=== PATIENT | male | born 1955 | race Caucasian/White ===

== ENCOUNTER 2018-07-25 09:53 | Inpatient (IN) | payer BC ==
[2018-07-25] MEDS ORDERED: DIPH,PERTUS(ACELL)TETVAC-LF 0.5 ML VIAL IM ONE (10:14)
[2018-07-25] MEDS ORDERED: SODIUM CHLORIDE 0.9% 1,000 ML IV STA (10:14)
--- NOTE | 2018-07-25 10:19 | ED ---
General Adult HPI - General Chief complaint: Syncope Stated complaint: Syncope Time Seen by Provider: 07/25/18 10:05 Source: patient, family, RN notes reviewed Mode of arrival: wheelchair Limitations: no limitations - History of Present Illness Initial comments: Patient is a pleasant 63-year-old male presenting to the emergency department with chest discomfort. Patient did have a syncopal episode yesterday while cutting the grass. Patient states he just fell down in the next thing he knows she was lifting himself up off the ground. Patient has had some discomfort in his chest since that time. Discomfort feels like an ache. Discomfort is positional and worse with deep breaths. No dyspnea. No leg pain or leg swelling. No headache or confusion. Patient did strike his face and has some abrasions there. No neck pain. - Related Data Home Medications Medication Instructions Recorded Confirmed Aspirin EC [Ecotrin Low Dose] 81 mg PO DAILY 07/25/18 07/25/18 Atorvastatin [Lipitor] 10 mg PO HS 07/25/18 07/25/18 Cyanocobalamin (Vitamin B-12) 1,000 mcg PO DAILY 07/25/18 07/25/18 [Vitamin B-12] Ergocalciferol (Vitamin D2) 50,000 unit PO FR 07/25/18 07/25/18 [Vitamin D2] Lisinopril [Zestril] 10 mg PO DAILY 07/25/18 07/25/18 Multivit-Min/FA/Lycopen/Lutein 1 tab PO DAILY 07/25/18 07/25/18 [Centrum Silver Tablet] [place]-3 Fatty Acids/Fish Oil [Fish 1 cap PO DAILY 07/25/18 07/25/18 Oil 1,000 mg Softgel] Allergies Allergy/AdvReac Type Severity Reaction Status Date / Time No Known Allergies Allergy Verified 07/25/18 10:29 Review of Systems ROS Statement: Those systems with pertinent positive or pertinent negative responses have been documented in the HPI. ROS Other: All systems not noted in ROS Statement are negative. Constitutional: Denies: fever Eyes: Denies: eye pain ENT: Denies: ear pain Respiratory: Denies: dyspnea Cardiovascular: Reports: as per HPI, chest pain Endocrine: Denies: fatigue Gastrointestinal: Denies: abdominal pain Genitourinary: Denies: dysuria Musculoskeletal: Denies: back pain Skin: Denies: pruritus Neurological: Denies: weakness, confusion Psychiatric: Reports: anxiety Past Medical History Past Medical History: Hyperlipidemia, Hypertension History of Any Multi-Drug Resistant Organisms: None Reported Past Surgical History: Appendectomy, Hernia Repair, Tonsillectomy Additional Past Surgical History / Comment(s): 5 hernia repair Past Psychological History: No Psychological Hx Reported Smoking Status: Current every day smoker Past Alcohol Use History: Daily Past Drug Use History: None Reported General Exam Limitations: no limitations General appearance: alert, in no apparent distress Head exam: Present: other (Facial abrasions. No tenderness over the nasal bridge.) Eye exam: Present: normal appearance, PERRL, EOMI. Absent: nystagmus ENT exam: Present: normal oropharynx Neck exam: Present: normal inspection. Absent: tenderness Respiratory exam: Present: normal lung sounds bilaterally. Absent: chest wall tenderness Cardiovascular Exam: Present: normal rhythm, tachycardia Expanded Peripheral pulses: 2+: Radial (R), Radial (L), Posterior Tibialis (R), Posterior Tibialis (L) GI/Abdominal exam: Present: soft. Absent: distended, tenderness, guarding, rebound Extremities exam: Present: normal inspection. Absent: pedal edema, calf tenderness Neurological exam: Present: alert, oriented X3, CN II-XII intact. Absent: motor sensory deficit Expanded Neurological exam: Present: protecting the airway Speech: Present: fluid speech Cranial nerves: EOM's Intact: Normal, Facial Sensation: Normal Sensory exam: Upper Extremity Light Touch: Normal, Lower Extremity Light Touch: Normal Motor strength exam: RUE: 5, LUE: 5, RLE: 5, LLE: 5 Eye Response: (4) open spontaneously Motor Response: (6) obeys commands Verbal Response: (5) oriented Psychiatric exam: Present: normal affect, normal mood Skin exam: Present: normal color Course Vital Signs 07/25/18 07/25/18 09:57 12:24 Temperature 98.7 F Pulse Rate 128 H 106 H Respiratory 24 18 Rate Blood Pressure 127/69 122/58 O2 Sat by Pulse 98 99 Oximetry - Reevaluation(s) Reevaluation #1: 07/25/18 13:35 There is suspicion for pneumonia. Patient does meet criteria for sepsis at 1335. Blood culture and lactic acid have been ordered. IV antibiotics will be ordered. EKG Findings - EKG Comments: EKG Findings:: Sinus tachycardia 119. DC 156. QRS 76. QT 308. QTC 433. Left axis. Septal Q waves. Repolarization changes in V2. Medical Decision Making - Medical Decision Making Patient reevaluated and updated. Patient and family are unaware of any history of previous lung problems. Case discussed in detail with Dr. Ghosh, who will admit for hospital call. - Lab Data Result diagrams: 07/25/18 10:20 07/25/18 10:20 Lab Results 07/25/18 07/25/18 07/25/18 Range/Units 10:20 10:20 10:20 WBC 15.2 H (3.8-10.6) k/uL RBC 4.34 (4.30-5.90) m/uL Hgb 13.1 (13.0-17.5) gm/dL Hct 41.2 (39.0-53.0) % MCV 94.8 (80.0-100.0) fL MCH 30.1 (25.0-35.0) pg MCHC 31.8 (31.0-37.0) g/dL RDW 12.1 (11.5-15.5) % Plt Count 560 H (150-450) k/uL Neutrophils % 86 % Lymphocytes % 8 % Monocytes % 5 % Eosinophils % 1 % Basophils % 0 % Neutrophils # 13.0 H (1.3-7.7) k/uL Lymphocytes # 1.2 (1.0-4.8) k/uL Monocytes # 0.7 (0-1.0) k/uL Eosinophils # 0.2 (0-0.7) k/uL Basophils # 0.0 (0-0.2) k/uL PT (9.0-12.0) sec INR (<1.2) APTT (22.0-30.0) sec D-Dimer (<0.60) mg/L FEU Sodium 133 L (137-145) mmol/L Potassium 4.0 (3.5-5.1) mmol/L Chloride 94 L (98-107) mmol/L Carbon Dioxide 26 (22-30) mmol/L Anion Gap 13 mmol/L BUN 13 (9-20) mg/dL Creatinine 0.79 (0.66-1.25) mg/dL Est GFR (CKD-EPI)AfAm >90 (>60 ml/min/1.73 sqM) Est GFR (CKD-EPI)NonAf >90 (>60 ml/min/1.73 sqM) Glucose 103 H (74-99) mg/dL Calcium 9.0 (8.4-10.2) mg/dL Magnesium 2.0 (1.6-2.3) mg/dL Total Bilirubin 0.7 (0.2-1.3) mg/dL AST 122 H (17-59) U/L ALT 101 H (21-72) U/L Alkaline Phosphatase 109 (38-126) U/L Total Creatine Kinase 20 L (55-170) U/L CK-MB (CK-2) 0.6 (0.0-2.4) ng/mL CK-MB (CK-2) Rel Index 3.0 Troponin I <0.012 (0.000-0.034) ng/mL Total Protein 5.8 L (6.3-8.2) g/dL Albumin 3.0 L (3.5-5.0) g/dL Urine Color Urine Appearance (Clear) Urine pH (5.0-8.0) Ur Specific [place] (1.001-1.035) Urine Protein (Negative) Urine Glucose (UA) (Negative) Urine Ketones (Negative) Urine Blood (Negative) Urine Nitrite (Negative) Urine Bilirubin (Negative) Urine Urobilinogen (<2.0) mg/dL Ur Leukocyte Esterase (Negative) 07/25/18 07/25/18 Range/Units 10:20 12:16 WBC (3.8-10.6) k/uL RBC (4.30-5.90) m/uL Hgb (13.0-17.5) gm/dL Hct (39.0-53.0) % MCV (80.0-100.0) fL MCH (25.0-35.0) pg MCHC (31.0-37.0) g/dL RDW (11.5-15.5) % Plt Count (150-450) k/uL Neutrophils % % Lymphocytes % % Monocytes % % Eosinophils % % Basophils % % Neutrophils # (1.3-7.7) k/uL Lymphocytes # (1.0-4.8) k/uL Monocytes # (0-1.0) k/uL Eosinophils # (0-0.7) k/uL Basophils # (0-0.2) k/uL PT 10.3 (9.0-12.0) sec INR 1.1 (<1.2) APTT 24.9 (22.0-30.0) sec D-Dimer 3.26 H (<0.60) mg/L FEU Sodium (137-145) mmol/L Potassium (3.5-5.1) mmol/L Chloride (98-107) mmol/L Carbon Dioxide (22-30) mmol/L Anion Gap mmol/L BUN (9-20) mg/dL Creatinine (0.66-1.25) mg/dL Est GFR (CKD-EPI)AfAm (>60 ml/min/1.73 sqM) Est GFR (CKD-EPI)NonAf (>60 ml/min/1.73 sqM) Glucose (74-99) mg/dL Calcium (8.4-10.2) mg/dL Magnesium (1.6-2.3) mg/dL Total Bilirubin (0.2-1.3) mg/dL AST (17-59) U/L ALT (21-72) U/L Alkaline Phosphatase (38-126) U/L Total Creatine Kinase (55-170) U/L CK-MB (CK-2) (0.0-2.4) ng/mL CK-MB (CK-2) Rel Index Troponin I (0.000-0.034) ng/mL Total Protein (6.3-8.2) g/dL Albumin (3.5-5.0) g/dL Urine Color Yellow Urine Appearance Clear (Clear) Urine pH 6.0 (5.0-8.0) Ur Specific [place] 1.035 (1.001-1.035) Urine Protein Trace H (Negative) Urine Glucose (UA) Negative (Negative) Urine Ketones 2+ H (Negative) Urine Blood Negative (Negative) Urine Nitrite Negative (Negative) Urine Bilirubin Negative (Negative) Urine Urobilinogen 3.0 (<2.0) mg/dL Ur Leukocyte Esterase Negative (Negative) - Radiology Data Radiology results: report reviewed (Computed tomography scan of the brain and cervical spine shows no acute hemorrhage or shift. Mild atrophy. Empty sella. Possible mastoiditis.), image reviewed (Two-view right chest x-ray shows bullous formation with air-fluid levels right upper lung with surrounding opacity. CT angios chest shows emphysematous changes with possible chronic findings. Acute process difficult to exclude. Fluid within the bullae and adjacent area of consolidation is present.) Disposition Clinical Impression: Syncope, Pneumonia, Sepsis Disposition: ADMITTED IP TO THIS HOSP Is patient prescribed a controlled substance at d/c from ED?: No Referrals: None,Stated [Primary Care Provider] - 1-2 days Decision Time: 13:36
[2018-07-25 10:39] LABS: Basophils % (A) 0 %; Eosinophils # (A) 0.2 k/uL (0-0.7); Eosinophils % (A) 1 %; HCT 41.2 % (39.0-53.0); HGB 13.1 gm/dL (13.0-17.5); Lymphocytes # (A) 1.2 k/uL (1.0-4.8); Lymphocytes % (A) 8 %; MCH 30.1 pg (25.0-35.0); MCHC 31.8 g/dL (31.0-37.0); MCV 94.8 fL (80.0-100.0); Mean Platelet Volume 6.5; Monocytes # (A) 0.7 k/uL (0-1.0); Monocytes % (A) 5 %; Neutrophils % (A) 86 %; Platelet Count 560 k/uL (150-450); RBC 4.34 m/uL (4.30-5.90); RDW 12.1 % (11.5-15.5); WBC 15.2 k/uL (3.8-10.6)
[2018-07-25 10:52] LABS: ALT 101 U/L (21-72); AST 122 U/L (17-59); Alkaline Phosphatase 109 U/L (38-126); Anion Gap 13 mmol/L; Blood Urea Nitrogen 13 mg/dL (9-20); Carbon Dioxide 26 mmol/L (22-30); Chloride 94 mmol/L (98-107); Glucose 103 mg/dL (74-99); Sodium 133 mmol/L (137-145); Total Bilirubin 0.7 mg/dL (0.2-1.3); Total Protein 5.8 g/dL (6.3-8.2)
[2018-07-25 11:01] LABS: Creatine Kinase 20 U/L (55-170)
[2018-07-25 11:03] LABS: INR 1.1 (<1.2); Partial Thromboplastin Time 24.9 sec (22.0-30.0); Prothrombin Time 10.3 sec (9.0-12.0)
--- NOTE | 2018-07-25 11:04 | CT ---
EXAMINATION TYPE: CT brain wo con DATE OF EXAM: 07/25/2018 HISTORY: Syncope, with fall to left side. Loss of consciousness. CT DLP: 978.20 mGycm. Automated Exposure Control for Dose Reduction was Utilized. TECHNIQUE: CT scan of the head is performed without contrast. COMPARISON: None. FINDINGS: There is no acute intracranial hemorrhage or midline shift identified. There is diffuse v entricular and sulcal prominence consistent with diffuse age-related cerebral atrophy. Wells-white mat ter differentiation is fairly well-maintained. The globes are intact and the visualized sinuses are clear. Patchy opacification right mastoid air cells is present posteriorly. Somewhat empty sella in cidentally noted on sagittal image 28. Moderate calcified plaque supraclinoid segment distal internal carotid arteries is present. IMPRESSION: No acute intracranial hemorrhage or midline shift. There is mild to moderate diffuse ag e-related cerebral atrophy. Empty sella is present. Possible mild right-sided mastoiditis, correlate clinically with point tenderness at this level.
--- NOTE | 2018-07-25 11:07 | XR ---
EXAMINATION TYPE: XR chest 2V DATE OF EXAM: 07/25/2018 COMPARISON: NONE HISTORY: Left-sided chest pain after fall injury. History of COPD. TECHNIQUE: Frontal and lateral views of the chest are obtained. FINDINGS: There is bullous formation in right upper lung with air-fluid levels suspected. There is s urrounding right lung opacity particularly inferiorly favoring scarring. Trachea appears narrowed and deviated to the left of midline. Left lung is clear. Left lung base is not entirely included on fron steve view making evaluation slightly suboptimal. The cardiac silhouette size is within normal limits. The osseous structures are intact. IMPRESSION: Right-sided findings as detailed above favor chronic etiology. Correlation with old outs ro chest x-ray or CT thorax would be beneficial to confirm.
[2018-07-25 11:15] LABS: Creatine Kinase MB 0.6 ng/mL (0.0-2.4); Troponin I <0.012 ng/mL (0.000-0.034)
[2018-07-25 11:17] LABS: D-Dimer 3.26 mg/L FEU (<0.60)
[2018-07-25 12:27] LABS: Appearance,Urine Clear (Clear); Bilirubin,Urine Negative (Negative); Blood,Urine Negative (Negative); Color,Urine Yellow; Glucose,Urine (UA) Negative (Negative); Ketones,Urine 2+ (Negative); Leukocyte Esterase,Urine Negative (Negative); Nitrite,Urine Negative (Negative); Protein,Urine Trace (Negative); Specific Gravity,Urine 1.035 (1.001-1.035)
--- NOTE | 2018-07-25 12:40 | CT ---
EXAMINATION TYPE: CT angio chest DATE OF EXAM: 07/25/2018 COMPARISON: Same day chest x-ray HISTORY: Elevated d dimer history of COPD with left-sided chest pain after fall injury. CT DLP: 401 mGycm. Automated Exposure Control for Dose Reduction was Utilized. CONTRAST: CTA scan of the thorax is performed with IV Contrast, patient injected with 68 mL of Isovue 370, pulm onary embolism protocol. MIP Images are created on CT scanner and reviewed. FINDINGS: LUNGS: Underlying emphysematous change is seen bilaterally. There are large bulla with thickened wall s occupying majority of the right upper lung lateral aspect. There are areas of adjacent honeycombing noted. Some areas of acute infiltrate are difficult to entirely exclude without prior comparison. So me fluid within bullae is confirmed as suspected on chest x-ray . Bleb formation at bilateral hilar r egion is noted. There is relative sparing of right middle and lower lobes of acute infiltrate or edging catcher makayla fibrosis. No pleural effusion or pneumothorax is evident bilaterally. AP diameter narrowing of th e trachea is present with some retained tracheal secretions noted. MEDIASTINUM: There is satisfactory enhancement of the pulmonary artery and its branches, there is no CT evidence for pulmonary embolism. There are no greater than 1 cm hilar or mediastinal lymph nodes. No cardiomegaly or pericardial effusion is seen. OTHER: No additional significant abnormality is seen. IMPRESSION: 1. No CT evidence for acute pulmonary embolism. 2. Background mild underlying emphysematous change with suspected chronic findings right upper lobe. Acute process on background of chronic disease is difficult to entirely exclude without prior compari son especially given presence of fluid within bulla and adjacent areas of consolidation and/or ground glass opacity. Strict clinical correlation is advised if there is no outside CT or chest x-ray compar natasha.
[2018-07-25] MEDS ORDERED: NICOTINE 21MG/24HR PATCH TRANSDERM STA (13:35)
[2018-07-25] MEDS ORDERED: NALOXONE 0.4 MG/ML 1 ML VIAL IV PRN (13:36)
[2018-07-25] MEDS ORDERED: IPRATROPIUM-ALBUTEROL 3 ML NEB INHALATION PRN (13:36)
[2018-07-25] MEDS ORDERED: PNEUMONIA PROTOCOL UTILIZED 1 EACH MISC PO PRN (13:36)
[2018-07-25] MEDS: AZITHROMYCIN 500 MG in SODIUM CHLORIDE 0.9% 250 ML IVPB STA ×2 (15:25→16:06)
[2018-07-25] MEDS: cefTRIAXone IN SWFI 1,000 MG/10 ML SYRINGE IVP STA ×2 (15:25→16:06)
[2018-07-25] MEDS: SODIUM CHLORIDE 0.9% 1,000 ML IV SCH (16:07)
[2018-07-25 16:37] LABS: Creatine Kinase 30 U/L (55-170)
--- NOTE | 2018-07-25 16:43 | P.CNPUL ---
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 The patient apparently was cutting the lawn and as he was doing that he was getting short of breath. He gave himself some rest and the same thing was drinking in beer. Subsequently he came back to do the job and he had a acute syncope with he passed out and he sustained some laceration to his face anteriorly. Within minutes, the patient was wide awake and the was about to call EMS and after the patient woke up the patient refused to come into the hospital. This morning, the patient came into the hospital for the event that occurred yesterday. No reported chest pain. No palpitations. No seizure activity noted. No focal neurological deficits. No change in his speech. CAT scan of the brain was done and showed chronic atrophy without any acute abnormalities seen. Chest x-ray was markedly abnormal and based on that a CAT scan of the chest was done that showed paraseptal emphysema addition to extensive consolidation of the right apical lobe in addition to areas of cavitation/fluid filled emphysematous pockets/ bullae and this was mainly affecting the upper lobe sparing the right middle lobe and the right lower lobe. Small right-sided pleural effusion was seen. No evidence of any significant medicinal lymphadenopathy. Unfortunately no previous x-rays aren't available for comparison. The patient denies having any close medical attention and he does not see doctors on a regular basis. He does admit however to become progressively more short of breath. His got a congested cough and his INR producing thick purulent sputum. Denies having any previous aspiration although he has had some difficulties with swallowing solid material. No history of TB exposure. No fever chills any admits to have lost some weight in the order of 10-15 pounds. No trauma to the chest. No exposure to animals or birds products. No travel history. His white cell count is mildly elevated at 15.0. Liver function is slightly abnormal. Troponins are negative. Aggressive electrodes are all within normal limits. EKG showed sinus tachycardia with bilateral a chair enlargement and left axis deviation and Q waves over the anterior leads suggestive of an old anterior wall myocardial infarction. Based on all this pulmonary consultation was requested. Review of Systems Constitutional: Reports fatigue, Reports lethargy, Reports weakness, Reports weight loss Eyes: denies blurred vision, denies bulging eye, denies decreased vision Ears: deny: decreased hearing, ear discharge, earache, tinnitus Ears, nose, mouth and throat: Reports as per HPI Cardiovascular: Reports decreased exercise tolerance, Reports dyspnea on exertion, Reports shortness of breath, Reports syncope Respiratory: Reports cough with sputum, Reports dyspnea Gastrointestinal: Denies abdominal pain, Denies diarrhea, Denies nausea, Denies vomiting Genitourinary: Reports as per HPI Musculoskeletal: Reports as per HPI, Denies myalgias Musculoskeletal: absent: ankle pain, ankle stiffness, ankle swelling Integumentary: Reports wounds (Superficial laceration of the skin over the forehead and the nose related to a fall post syncope) Neurological: Reports syncope, Reports weakness Psychiatric: Denies anxiety, Denies depression Endocrine: Reports as per HPI Hematologic/Lymphatic: Reports as per HPI Allergic/Immunologic: Reports as per HPI Past Medical History Past Medical History: COPD, Hyperlipidemia, Hypertension, Osteoarthritis (OA) Additional Past Medical History / Comment(s): Arthritis bilateral hands, elbows , shoulders and L foot. History of Any Multi-Drug Resistant Organisms: None Reported Past Surgical History: Appendectomy, Hernia Repair, Tonsillectomy Additional Past Surgical History / Comment(s): 5 hernia repairs involving bilateral groins Past Anesthesia/Blood Transfusion Reactions: No Reported Reaction Additional Past Anesthesia/Blood Transfusion Reaction / Comment(s): Pt has never received blood. Smoking Status: Current every day smoker - Past Family History Father Family Medical History: Musculoskeletal Disorder, Neurologic Disorder Additional Family Medical History / Comment(s): Father is . He had MS. Mother Family Medical History: Myocardial Infarction (MA) Additional Family Medical History / Comment(s): Mother of a MA at the age of 78yrs. Medications and Allergies Home Medications Medication Instructions Recorded Confirmed Type Aspirin EC [Ecotrin Low Dose] 81 mg PO DAILY 07/25/18 07/25/18 History Atorvastatin [Lipitor] 10 mg PO HS 07/25/18 07/25/18 History Cyanocobalamin (Vitamin B-12) 1,000 mcg PO DAILY 07/25/18 07/25/18 History [Vitamin B-12] Ergocalciferol (Vitamin D2) 50,000 unit PO FR 07/25/18 07/25/18 History [Vitamin D2] Lisinopril [Zestril] 10 mg PO DAILY 07/25/18 07/25/18 History Multivit-Min/FA/Lycopen/Lutein 1 tab PO DAILY 07/25/18 07/25/18 History [Centrum Silver Tablet] [place]-3 Fatty Acids/Fish Oil [Fish 1 cap PO DAILY 07/25/18 07/25/18 History Oil 1,000 mg Softgel] Allergies Allergy/AdvReac Type Severity Reaction Status Date / Time No Known Allergies Allergy Verified 07/25/18 10:29 Physical Exam Vitals: Vital Signs Temp Pulse Resp BP Pulse Ox 07/25/18 13:58 98.9 F 101 H 18 123/62 99 07/25/18 12:24 106 H 18 122/58 99 07/25/18 09:57 98.7 F 128 H 24 127/69 98 Intake and Output 07/25/18 07/25/18 07/25/18 06:59 14:59 22:59 Other: Weight 63.503 kg Gen. appearance, comfortable likely distress. The patient has some superficial examination of the skin over the forehead and nose, no active bleeding Head exam was generally normal. There was no scleral icterus or corneal arcus. Mucous membranes were moist. Neck was supple and without jugular venous distension, thyromegaly, or carotid bruits. Carotids were easily palpable bilaterally. There was no adenopathy. Lungs sounds are diminished bilaterally along with some scattered expiratory wheezes. Few rales over the right upper lobe area anteriorly. Cardiac exam revealed the PMI to be normally situated and sized. The rhythm was regular and no extrasystoles were noted during several minutes of auscultation. The first and second heart sounds were normal and physiologic splitting of the second heart sound was noted. There were no murmurs, rubs, clicks, or gallops. Abdominal exam revealed normal bowel sounds. The abdomen was soft, non-tender, and without masses, organomegaly, or appreciable enlargement of the abdominal aorta. Examination of the skin revealed no evidence of significant rashes, suspicious appearing nevi or other concerning lesions. Examination of the extremities revealed easily palpable radial, femoral and pedal pulses. There was no cyanosis, clubbing or edema. Neurologically awake and alert and there is no focal neurological deficits. Results - Laboratory Findings CBC and BMP: 07/25/18 10:20 07/25/18 10:20 PT/INR, D-dimer PT 10.3 sec (9.0-12.0) 07/25/18 10:20 INR 1.1 (<1.2) 07/25/18 10:20 D-Dimer 3.26 mg/L FEU (<0.60) H 07/25/18 10:20 Abnormal lab findings: Abnormal Labs 07/25/18 07/25/18 07/25/18 10:20 10:20 10:20 WBC 15.2 H Plt Count 560 H Neutrophils # 13.0 H D-Dimer Sodium 133 L Chloride 94 L Glucose 103 H AST 122 H ALT 101 H Total Creatine Kinase 20 L Total Protein 5.8 L Albumin 3.0 L Urine Protein Urine Ketones 07/25/18 07/25/18 10:20 12:16 WBC Plt Count Neutrophils # D-Dimer 3.26 H Sodium Chloride Glucose AST ALT Total Creatine Kinase Total Protein Albumin Urine Protein Trace H Urine Ketones 2+ H - Diagnostic Findings Chest x-ray: image reviewed CT scan - chest: image reviewed Assessment and Plan Plan: Assessment 1 extensive right upper lobe consolidation along with areas of either cavitation or fluid filled bullae/emphysematous blebs. This is most probably a manifestation of a pneumonia which is looking more subacute or chronic rather than being acute. The patient has been having some increased shortness of breath over the past several weeks. He drinks alcohol excessively is a smoker. As such I'm considering anaerobic infections/aspiration or gram-negative infections related to alcoholism. Tuberculosis felt to be less likely knowing that the patient's CAT scan does not reveal a typical features of TB and there is no evidence of any granulomatous changes changes or mediastinal node involvement, and furthermore the patient denies having any exposure to TB. Atypical mycobacterial infection, fungal infections are likely. 2 shortness of breath secondary to above 3 COPD with upper lobe predominance and areas of paraseptal emphysema 4 syncope on that investigation, in my judgment, the syncope is unlikely related to the lung findings and other causes need to be ruled out including possibility of alcoholic passed out or any other cardiogenic causes 5 smoker 6 alcoholism, suspected 7 anterior Q-wave leads, abnormal EKG, suspect previous MA involving the anterior wall/septal wall 8 hypertension 9 hyperlipidemia Plan Put the patient is Zosyn and Levaquin combination. Had a lengthy discussion with the patient. Very important for this patient underwent bronchoscopy for airway inspection same time obtain samples from the right upper lobe and sent for microbial analysis and fungal analysis. Put the patient on DuoNeb the restrooms [id number]. Keep him nothing by mouth after midnight for possible bronchoscopy in a.m.. Meanwhile the patient will be placed on telemetry monitoring. We'll obtain echocardiogram. Would like to obtain a cardiac clearance prior to proceeding with bronchoscopy in a.m. Explained the findings to the patient. Reviewed the films with the family. We'll watch for any signs of delirium tremens. We'll continue to follow. Cardiology consultation.
[2018-07-25] MEDS: LEVOFLOXACIN 750 MG TAB PO SCH (16:49)
[2018-07-25] MEDS: PIPERACILLIN-TAZOBACTAM 3.375 GM in DEXTROSE/WATER 1 50ML.BAG IVPB SCH (16:49)
[2018-07-25 16:50] LABS: Creatine Kinase MB 0.5 ng/mL (0.0-2.4); Troponin I <0.012 ng/mL (0.000-0.034)
[2018-07-25] MEDS ORDERED: LORazepam 2 MG/ML INJ IV PRN ×3 (17:37)
[2018-07-25] MEDS ORDERED: THIAMINE 100 MG/ML 2 ML VIAL IM STA (17:37)
[2018-07-25] MEDS ORDERED: ONDANSETRON 4 MG/2 ML VIAL IVP PRN (17:38)
[2018-07-25] MEDS ORDERED: traMADol 50 MG TAB PO PRN (17:40)
[2018-07-25] MEDS: LISINOPRIL 10 MG TAB PO SCH (18:39)
[2018-07-25] MEDS: PANTOPRAZOLE 40 MG/10 ML VIAL IVP SCH (18:39)
[2018-07-25] MEDS: THIAMINE 100 MG TAB PO SCH (18:39)
[2018-07-25] MEDS: MELATONIN 3 MG TABLET PO SCH (20:03)
[2018-07-25] MEDS: ATORVASTATIN 10 MG TAB PO SCH (20:03)
[2018-07-25] MEDS: IPRATROPIUM-ALBUTEROL 3 ML NEB INHALATION SCH (20:26)
[2018-07-25] MEDS ORDERED: HYDROcodone/APAP 5-325MG 1 EACH TAB PO PRN (22:18)
[2018-07-25] MEDS ORDERED: ALPRAZolam 0.25 MG TAB PO PRN (22:18)
[2018-07-25] MEDS ORDERED: TEMAZEPAM 15 MG CAP PO PRN (22:18)
--- NOTE | 2018-07-25 23:23 | HP ---
HISTORY AND PHYSICAL CHIEF COMPLAINT: Syncope as well as cough and chest pain. HISTORY OF PRESENT ILLNESS: This 63-year-old gentleman with a past medical history of multiple medical problems, including COPD, hypertension, hypertension, DJD, history of appendectomy, hernia surgery, is not being followed by any primary physician at this time. The patient apparently passed out while walking in the backyard after mowing the lawn and today the patient apparently had nausea and complaining of chest pain and the patient was taken to [facility] and admitted for further evaluation and treatment. The patient was found to have extensive right upper lobe consolidation with possibly cavitation and emphysematous pleural effusion on the right side and the patient was admitted for further evaluation and treatment. There is no history of any previous respiratory illness. No history of any travel elsewhere. No history of headache, seizures at this time. The patient was admitted. Broad-spectrum IV antibiotics were given. The patient was also given bronchodilators. Bronchoscopy is being planned by Dr. Fournier tomorrow. PAST MEDICAL HISTORY: COPD, hypertension, history of DJD, history of appendectomy, history of hernia repair. MEDICATIONS PRIOR TO ADMISSION: Include: 1. [place]-3 fatty acids 1 p.o. daily. 2. Multivitamins 1 p.o. daily. 3. Zestril 10 mg. 4. Vitamin D2, 50,000 p.o. Saturday. 5. Vitamin D 2000 mcg p.o. daily. 6. Lipitor 10 mg q.h.s. 7. Ecotrin 81 mg p.o. daily. ALLERGIES: None. FAMILY HISTORY: History of neurological disorder, history of multiple sclerosis. SOCIAL HISTORY: History of smoking on a daily basis. History of alcohol. REVIEW OF SYSTEMS: ENT: No diminished hearing, diminished vision. CARDIOVASCULAR: No angina, palpitations. RESPIRATORY: As mentioned earlier. GI: No nausea or vomiting. : No dysuria. NERVOUS: No numbness or weakness. ALLERGY/IMMUNOLOGY: No asthma or hay fever. MUSCULOSKELETAL: As mentioned earlier. HEMATOLOGY/ONCOLOGY: No history of anemia. ENDOCRINE: No history of diabetes, hypothyroidism. CONSTITUTIONAL: As mentioned earlier. DERMATOLOGY: Negative. RHEUMATOLOGY: Negative. PSYCHIATRY: As mentioned earlier. PHYSICAL EXAMINATION: Alert, oriented x3. Pulse 103, blood pressure 130/70, respirations 20, temperature 98.4, pulse ox 94% on room air. HEENT: Conjunctivae normal. Oral mucosa moist. NECK: No jugular venous distention. No carotid bruits. No lymph node enlargement. CARDIOVASCULAR: S1, S2 muffled. RESPIRATORY: Breath sounds diminished in the bases. Bilateral scattered rhonchi and crackles. ABDOMEN: Soft, nontender. No mass palpable. LEGS: No edema. No swelling. NERVOUS SYSTEM: Higher functions as mentioned earlier. Moves all 4 limbs. No focal motor or sensory deficits. LYMPHATIC: No lymphadenopathy in neck or axillae. SKIN: No ulcer, rash or bleeding. LABS: WBC 15.2 and platelets 560 and D-dimer is 3.26. ASSESSMENT: 1. Chronic obstructive pulmonary disease acute exacerbation with right upper lobe pneumonia, possibly gram-negative. 2. Right upper lobe cavitary lesion for evaluation. 3. Increased WBC. 4. Hyponatremia. 5. Continued ongoing nicotine dependence. 6. Increased AST ALT. 7. Hypertension. 8. Hyperlipidemia. 9. Degenerative joint disease. 10.History of chronic obstructive pulmonary disease. 11.History of degenerative joint disease. RECOMMENDATIONS AND DISCUSSION: In this 63-year-old gentleman who presented with multiple complex medical issues, we will monitor the patient closely, continue the current medications. Continue with the bronchodilators, continue with empiric antibiotics. Follow closely with Dr. Fournier. Otherwise, I would also recommend continue with the bronchoscopy. Resume the home medications. I would also recommend it p.r.n. Ativan. Otherwise, repeat labs will be ordered. Home medications will be continued. The prognosis is guarded because of multiple complex medical issues. Further recommendations to follow. I also recommend the patient follow up with a primary physician in the outpatient setting. MMODL / IJN: [id number] /
[2018-07-25 23:26] LABS: Creatine Kinase 21 U/L (55-170)
[2018-07-25 23:40] LABS: Creatine Kinase MB 0.5 ng/mL (0.0-2.4); Troponin I <0.012 ng/mL (0.000-0.034)
[2018-07-26] MEDS: ACETAMINOPHEN TAB 500 MG TAB PO PRN ×2 (01:09→20:43)
[2018-07-26] MEDS: PIPERACILLIN-TAZOBACTAM 3.375 GM in DEXTROSE/WATER 1 50ML.BAG IVPB SCH ×3 (01:10→16:01)
[2018-07-26] MEDS: SODIUM CHLORIDE 0.9% 1,000 ML IV SCH ×2 (06:05→16:19)
--- NOTE | 2018-07-26 06:39 | XR ---
EXAMINATION TYPE: XR chest 2V DATE OF EXAM: 07/26/2018 HISTORY: pneumonia. REFERENCE: Previous study dated 07/25/2018. FINDINGS: Lung volumes are prominent. There is bullous change in the right upper lobe. There is opaci fication of part of the right upper lobe and there is an air-fluid level in the upper chest on the ri ght. The left lung is clear. The heart is not enlarged. No definite pleural fluid is seen. IMPRESSION: 1. COPD. 2. CAVITATING LESION, RIGHT UPPER LOBE. 3. OPACIFICATION OF THE RIGHT UPPER LOBE. I COULD NOT EXCLUDE SUPERIMPOSED PNEUMONIA.
[2018-07-26 07:18] LABS: Basophils % (A) 0 %; Eosinophils # (A) 0.2 k/uL (0-0.7); Eosinophils % (A) 1 %; HCT 36.1 % (39.0-53.0); HGB 11.8 gm/dL (13.0-17.5); Lymphocytes # (A) 1.3 k/uL (1.0-4.8); Lymphocytes % (A) 9 %; MCH 31.4 pg (25.0-35.0); MCHC 32.8 g/dL (31.0-37.0); MCV 95.6 fL (80.0-100.0); Mean Platelet Volume 6.8; Monocytes # (A) 0.7 k/uL (0-1.0); Monocytes % (A) 5 %; Neutrophils # (A) 12.4 k/uL (1.3-7.7); Neutrophils % (A) 83 %; Platelet Count 515 k/uL (150-450); RBC 3.77 m/uL (4.30-5.90); WBC 14.8 k/uL (3.8-10.6)
[2018-07-26] MEDS: IPRATROPIUM-ALBUTEROL 3 ML NEB INHALATION SCH ×4 (07:30→19:24)
[2018-07-26 07:34] LABS: ALT 97 U/L (21-72); AST 94 U/L (17-59); Albumin 2.4 g/dL (3.5-5.0); Alkaline Phosphatase 94 U/L (38-126); Anion Gap 7 mmol/L; Blood Urea Nitrogen 8 mg/dL (9-20); Calcium 8.6 mg/dL (8.4-10.2); Carbon Dioxide 27 mmol/L (22-30); Chloride 97 mmol/L (98-107); Glucose 88 mg/dL (74-99); Potassium 4.8 mmol/L (3.5-5.1); Sodium 131 mmol/L (137-145); Total Bilirubin 0.7 mg/dL (0.2-1.3); Total Protein 5.1 g/dL (6.3-8.2)
--- NOTE | 2018-07-26 07:59 | ECHOF ---
Referral Reason:syncope MEASUREMENTS -------- HEIGHT: 172.7 cm WEIGHT: 63.5 kg BP: 123/62 RVIDd: 2.4 cm (< 3.3) IVSd: 0.9 cm (0.6 - 1.1) LVIDd: 4.2 cm (3.9 - 5.3) LVPWd: 1.0 cm (0.6 - 1.1) IVSs: 1.3 cm LVIDs: 2.8 cm LVPWs: 1.3 cm LAESV Index (A-L): 31.28 ml/m Ao Diam: 3.0 cm (2.0 - 3.7) AV Cusp: 1.8 cm (1.5 - 2.6) LA Diam: 3.0 cm (2.7 - 3.8) MV E Dilshad: 0.92 m/s MV A Dilshad: 1.13 m/s MV E/A Ratio: 0.81 RAP: 5.00 mmHg RVSP: 10.40 mmHg FINDINGS -------- Sinus rhythm. Resting tachycardia (HR>100bpm). This was a technically good study. The left ventricular size is normal. Left ventricular wall thickness is normal. Overall left vent ricular systolic function is normal with, an EF between 55 - 60 %. The right ventricle is normal in size and function. LA is midly dilated 29-33ml/m2. The right atrium is normal in size. The aortic valve is trileaflet, and appears structurally normal. No aortic stenosis or regurgitation. The mitral valve is normal. There is trace to mild mitral regurgitation. Trace tricuspid regurgitation present. Right ventricular systolic pressure is normal at < 35 mmHg. There is no evidence of pulmonary hypertension. The pulmonic valve was not well visualized. There is no pulmonic regurgitation present. The aortic root size is normal. Normal inferior vena cava with normal inspiratory collapse consistent with estimated right atrial pre ssure of 5 mmHg. There is no pericardial effusion. CONCLUSIONS -------- 1. Sinus rhythm. 2. Resting tachycardia (HR>100bpm). 3. This was a technically good study. 4. The left ventricular size is normal. 5. Left ventricular wall thickness is normal. 6. Overall left ventricular systolic function is normal with, an EF between 55 - 60 %. 7. LA is midly dilated 29-33ml/m2. 8. The aortic valve is trileaflet, and appears structurally normal. No aortic stenosis or regurgitati on. 9. The mitral valve is normal. 10. There is trace to mild mitral regurgitation. 11. Trace tricuspid regurgitation present. 12. Right ventricular systolic pressure is normal at < 35 mmHg. 13. The pulmonic valve was not well visualized. 14. There is no pulmonic regurgitation present. 15. The aortic root size is normal. 16. There is no pericardial effusion. CHROME TANNING DRUM OPERATOR: Baltazar Davis RDCS
[2018-07-26] MEDS: LISINOPRIL 10 MG TAB PO SCH (08:48)
[2018-07-26] MEDS: NICOTINE 21MG/24HR PATCH TRANSDERM SCH (08:48)
[2018-07-26] MEDS: PANTOPRAZOLE 40 MG/10 ML VIAL IVP SCH (08:49)
[2018-07-26] MEDS: CYANOCOBALAMIN 500 MCG TAB PO SCH (08:49)
[2018-07-26] MEDS ORDERED: NON-FORMULARY DRUG (Omega-3 Fatty Acids/Fish Oil [Fish Oil 1,000 Mg Softgel] 1 CAP) PO SCH (09:00)
[2018-07-26] MEDS ORDERED: cefTRIAXone IN SWFI 1,000 MG/10 ML SYRINGE IVP SCH (09:00)
--- NOTE | 2018-07-26 10:36 | P.CRDCN ---
History of Present Illness Consult date: 07/26/18 Requesting physician: Jennifer Ghosh Reason for Consult (text): syncope Chief complaint: syncope History of present illness: this is a pleasant 63-year-old gentleman with history of nicotine dependence, hyperlipidemia, hypertension, drinks approximately 3-4 beers daily. Presented to the emergency department following a syncopal episode.he was mowing his lawn , went inside to take a break and while walking back to his lawnmower passed out. He had no warning, no dizziness, no shortness of breath or chest discomfort, no palpitations or lightheadedness. laboratory values showed an elevated WBC and troponins negative 3. D-dimer was elevated and a CT of the chest was negative for PE. Echocardiogram showed an ejection fraction of 55-60 % with no significant valvular abnormalities. Otherwise he does drink several beers a day he says the day of his syncopal episode he only had about 1 beer. He's had no evidence of arrhythmia on telemetry. Past Medical History Past Medical History: COPD, Hyperlipidemia, Hypertension, Osteoarthritis (OA) Additional Past Medical History / Comment(s): Arthritis bilateral hands, elbows , shoulders and L foot. History of Any Multi-Drug Resistant Organisms: None Reported Past Surgical History: Appendectomy, Hernia Repair, Tonsillectomy Additional Past Surgical History / Comment(s): 5 hernia repairs involving bilateral groins Past Anesthesia/Blood Transfusion Reactions: No Reported Reaction Additional Past Anesthesia/Blood Transfusion Reaction / Comment(s): Pt has never received blood. Smoking Status: Current every day smoker - Past Family History Father Family Medical History: Musculoskeletal Disorder, Neurologic Disorder Additional Family Medical History / Comment(s): Father is . He had MS. Mother Family Medical History: Myocardial Infarction (MT) Additional Family Medical History / Comment(s): Mother of a MT at the age of 78yrs. Medications and Allergies Home Medications Medication Instructions Recorded Confirmed Type Aspirin EC [Ecotrin Low Dose] 81 mg PO DAILY 07/25/18 07/25/18 History Atorvastatin [Lipitor] 10 mg PO HS 07/25/18 07/25/18 History Cyanocobalamin (Vitamin B-12) 1,000 mcg PO DAILY 07/25/18 07/25/18 History [Vitamin B-12] Ergocalciferol (Vitamin D2) 50,000 unit PO FR 07/25/18 07/25/18 History [Vitamin D2] Lisinopril [Zestril] 10 mg PO DAILY 07/25/18 07/25/18 History Multivit-Min/FA/Lycopen/Lutein 1 tab PO DAILY 07/25/18 07/25/18 History [Centrum Silver Tablet] [place]-3 Fatty Acids/Fish Oil [Fish 1 cap PO DAILY 07/25/18 07/25/18 History Oil 1,000 mg Softgel] Allergies Allergy/AdvReac Type Severity Reaction Status Date / Time No Known Allergies Allergy Verified 07/25/18 10:29 Physical Exam Vitals: Vital Signs Temp Pulse Pulse Resp BP BP Pulse Ox 07/26/18 08:00 98.5 F 104 H 20 137/64 95 07/26/18 07:30 92 07/26/18 04:00 98.4 F 88 24 107/56 100 07/26/18 03:57 100 20 07/26/18 00:00 100.1 F H 100 20 104/51 94 L 07/25/18 20:40 100 07/25/18 20:26 103 H 07/25/18 20:00 99.6 F 100 20 117/57 95 07/25/18 16:00 98.5 F 104 H 20 138/72 95 07/25/18 13:58 98.9 F 101 H 18 123/62 99 07/25/18 13:36 95 07/25/18 12:24 106 H 18 122/58 99 Intake and Output 07/25/18 07/26/18 07/26/18 22:59 06:59 14:59 Intake Total 240 900 Balance 240 900 Intake: Intake, IV Titration 900 Amount Sodium Chloride 0.9% 1, 900 000 ml @ 100 mls/hr IV . Q10H STA Rx#:[id number] Oral 240 Other: # Voids 2 2 1 Weight 63.8 kg PHYSICAL EXAMINATION: HEENT: [Head is atraumatic, normocephalic. Pupils equal, round. Neck is supple. There is no elevated jugular venous pressure. facial abrasions noted] HEART EXAMINATION: [Heart sounds regular, S1 and S2 normal. No murmur or gallop heard.] CHEST EXAMINATION:[ Lungs are clear to auscultation and precussion. No chest wall tenderness is noted on palpation or with deep breathing.] ABDOMEN: [ Soft, nontender. Bowel sounds are heard. No organomegaly noted]. EXTREMITIES:[ 2+ peripheral pulses with no evidence of peripheral edema and no calf tenderness noted]. NEUROLOGIC [patient is awake, alert and oriented x3.] . Results 07/26/18 06:46 07/26/18 06:46 Cardiac Enzymes 07/25/18 07/25/18 07/25/18 Range/Units 10:20 10:20 16:03 AST 122 H (17-59) U/L CK-MB (CK-2) 0.6 0.5 (0.0-2.4) ng/mL Troponin I <0.012 <0.012 (0.000-0.034) ng/mL 07/25/18 07/26/18 Range/Units 22:14 06:46 AST 94 H (17-59) U/L CK-MB (CK-2) 0.5 (0.0-2.4) ng/mL Troponin I <0.012 (0.000-0.034) ng/mL Coagulation 07/25/18 Range/Units 10:20 PT 10.3 (9.0-12.0) sec APTT 24.9 (22.0-30.0) sec CBC 07/25/18 07/26/18 Range/Units 10:20 06:46 WBC 15.2 H 14.8 H (3.8-10.6) k/uL RBC 4.34 3.77 L (4.30-5.90) m/uL Hgb 13.1 11.8 L (13.0-17.5) gm/dL Hct 41.2 36.1 L (39.0-53.0) % Plt Count 560 H 515 H (150-450) k/uL Comprehensive Metabolic Panel 07/25/18 07/26/18 Range/Units 10:20 06:46 Sodium 133 L 131 L (137-145) mmol/L Potassium 4.0 4.8 (3.5-5.1) mmol/L Chloride 94 L 97 L (98-107) mmol/L Carbon Dioxide 26 27 (22-30) mmol/L BUN 13 8 L (9-20) mg/dL Creatinine 0.79 0.68 (0.66-1.25) mg/dL Glucose 103 H 88 (74-99) mg/dL Calcium 9.0 8.6 (8.4-10.2) mg/dL AST 122 H 94 H (17-59) U/L ALT 101 H 97 H (21-72) U/L Alkaline Phosphatase 109 94 (38-126) U/L Total Protein 5.8 L 5.1 L (6.3-8.2) g/dL Albumin 3.0 L 2.4 L (3.5-5.0) g/dL Current Medications Generic Name Dose Route Start Last Admin Trade Name Freq PRN Reason Stop Dose Admin Acetaminophen 500 mg 07/25/18 22:18 07/26/18 01:09 Tylenol Tab PO 500 mg Q6HR PRN Administration Fever and/ or Pain Hydrocodone Bitart/Acetaminophen 1 each 07/25/18 22:18 [place] 5-325 PO Q6HR PRN Pain Albuterol/Ipratropium 3 ml 07/25/18 13:36 Duoneb 0.5 Mg-3 Mg/3 Ml Soln INHALATION RT-Q4H PRN shortness of breath Albuterol/Ipratropium 3 ml 07/25/18 20:00 07/26/18 07:30 Duoneb 0.5 Mg-3 Mg/3 Ml Soln INHALATION 3 ml RT-QID DURGA Administration Alprazolam 0.25 mg 07/25/18 22:18 Xanax PO TID PRN Anxiety Atorvastatin Calcium 10 mg 07/25/18 21:00 07/25/18 20:03 Lipitor PO 10 mg HS DURGA Administration Cyanocobalamin 1,000 mcg 07/26/18 09:00 07/26/18 08:49 Vitamin B-12 PO 1,000 mcg DAILY DURGA Administration Ergocalciferol 50,000 unit 08/01/18 09:00 Vitamin D2 PO FR DURGA Sodium Chloride 1,000 mls @ 75 mls/hr 07/25/18 13:45 07/26/18 06:05 Saline 0.9% IV 75 mls/hr .[id number] DURGA Administration Piperacillin/Tazobactam/ 50 mls @ 12.5 mls/hr 07/25/18 16:00 07/26/18 09:36 Dextrose 3.375 gm/ IV Solution IVPB 12.5 mls/hr Q8HR DURGA Administration Levofloxacin 750 mg 07/25/18 16:00 07/25/18 16:49 Levaquin PO 750 mg DAILY@1600 DURGA Administration Lisinopril 10 mg 07/25/18 09:00 07/26/18 08:48 Zestril PO 10 mg DAILY DURGA Administration Lorazepam 1 mg 07/25/18 17:37 Ativan IV Q2HR PRN CIWA 8 or 9 Lorazepam 1 mg 07/25/18 17:37 Ativan IV Q1HR PRN CIWA 10 to 15 Lorazepam 2 mg 07/25/18 17:37 Ativan IV 07/27/18 17:38 Q10M PRN CIWA 16 or higher Melatonin 6 mg 07/25/18 21:00 07/25/18 20:03 Melatonin PO 6 mg HS DURGA Administration Miscellaneous Information 1 each 07/25/18 13:36 Pneumonia Protocol Utilized PO ONCE PRN Per Protocol Multivitamins 1 each 07/26/18 12:00 Theragran PO DAILY@1200 DURGA Naloxone HCl 0.2 mg 07/25/18 13:36 Narcan IV Q2M PRN Opioid Reversal Nicotine 1 patch 07/26/18 09:00 07/26/18 08:48 Habitrol 21mg/24hr Patch TRANSDERM 1 patch DAILY DURGA Administration Ondansetron HCl 4 mg 07/25/18 17:38 Zofran IVP Q6HR PRN Nausea And Vomiting Pantoprazole Sodium 40 mg 07/25/18 17:45 07/26/18 08:49 Protonix IVP 40 mg DAILY DURGA Administration Temazepam 15 mg 07/25/18 22:18 Restoril PO HS PRN Insomnia Thiamine HCl 100 mg 07/25/18 17:00 07/25/18 18:39 Vitamin B-1 PO 100 mg BID@1200,1700 DURGA Administration Tramadol HCl 50 mg 07/25/18 17:40 Ultram PO Q6H PRN Mild Pain Intake and Output 07/25/18 07/26/18 07/26/18 22:59 06:59 14:59 Intake Total 240 900 Balance 240 900 Intake: Intake, IV Titration 900 Amount Sodium Chloride 0.9% 1, 900 000 ml @ 100 mls/hr IV . Q10H STA Rx#:[id number] Oral 240 Other: # Voids 2 2 1 Weight 63.8 kg 07/26/18 06:46 07/26/18 06:46 EKG Interpretations (text) sinus rhythm with no ST segment abnormalities consistent with acute ischemia Assessment and Plan Assessment: #1 syncope #2 hypertension #3 hyperlipidemia #4 nicotine dependence #5 EtOH Plan: from news copy editor perspective, we will check orthostatics and wants patient to telemetry. We will Continue follow the patient provided further recommendations accordingly. BODY BUILDER note has been reviewed, I agree with a documented findings and plan of care. Patient was seen and examined.
[2018-07-26 10:59] VITALS: BMI 21.4
--- NOTE | 2018-07-26 11:24 | P.PN ---
Progress Note - Text Patient admitted with exertional syncope of unclear etiology. No angina normal cardiac enzymes 2-D echo and Doppler study has been ordered. Orthostatics will be checked. Continue telemetry monitoring Being treated for pneumonitis white count is elevated Patient states that he did not drink any alcoholic beverages that day Follow-up with Dr. Beach as an outpatient
[2018-07-26] MEDS: THIAMINE 100 MG TAB PO SCH ×2 (11:35→16:18)
[2018-07-26] MEDS: MULTIVITAMINS, THERA 1 EACH TAB PO SCH (11:35)
[2018-07-26] MEDS ORDERED: IV FLUID CONTINUATION 400 ML IV ONE (13:11)
[2018-07-26] MEDS ORDERED: MIDAZOLAM 2 MG/2 ML VIAL ONE (13:11)
[2018-07-26] MEDS ORDERED: PROPOFOL 10 MG/ML 20 ML VIAL IV ONE (13:11)
[2018-07-26] MEDS ORDERED: LIDOCAINE 1% INJ 10MG/ML (20 ML MDV) ONE (13:11)
[2018-07-26] MEDS ORDERED: LIDOCAINE 2% INJ 20 MG/ML INTRATRACH ONE (13:21)
--- NOTE | 2018-07-26 13:32 | P.PCN ---
Date of Procedure: 07/26/18 Preoperative Diagnosis: Flexible bronchoscopy, BAL right upper lobe Postoperative Diagnosis: Same Procedure(s) Performed: Flexible bronchoscopy, BAL of the right upper lobe Anesthesia: MAC Surgeon: Debbie Fournier Estimated Blood Loss (ml): 0 Pathology: other Condition: stable Disposition: floor Operative Findings: This is a 63-year-old male patient with an extensive necrotizing right upper lobe pneumonia with possible fluid filled emphysematous blebs. The patient is coming in for a flexible bronchoscope and BAL of the right upper lobe This procedure was done in the endoscopy suite and anesthetics was given by TOOL SHARPENER. The patient was given Versed and propofol. After achieving adequate sedation, the flexible bronchoscope was inserted through the right nostril was advanced upper airway. Examination of the upper airways included the pharynx, larynx, epiglottis, arytenoids, and vocal cords. All of the upper airway structures were inspected and the findings are essentially within normal limits. The patient had a total of 2 mL of 1% lidocaine was applied to the vocal cords and following that the bronchoscope was advanced into the upper trachea and examination of the tracheal bronchial tree was done. The visualized airways included the trachea, bilateral mainstem bronchi, right upper lobe bronchus, bronchus intermedius, right middle lobe and right lower lobe bronchus, left upper and left lower lobe bronchus along with various segments and subsegments. The right upper lobe bronchus was occluded by thick material, purulent respiratory secretions that were suctioned out. The 3 segments of the right upper lobe was visualized. The posterior segment was quite narrowed however I was able to push the bronchoscope and without any major difficulties. Anatomically there was some distortion in the right upper lobe segments over there all patent. Subsegments were not visualized. Bronchoscope was then wedged into the anterior segment of the right upper lobe and the bronchioloalveolar lavage was done. A total of 80 cc of fluid was infused and 40 mL was suctioned back. Addendum of the procedure, therapeutic airway suctioning was done and the bronchoscope was removed and the patient will be transferred back his room in a stable condition. the patient. No bleeding. The BAL will be sent for microbial analysis.
--- NOTE | 2018-07-26 13:36 | P.PN ---
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 The patient apparently was cutting the lawn and as he was doing that he was getting short of breath. He gave himself some rest and the same thing was drinking in beer. Subsequently he came back to do the job and he had a acute syncope with he passed out and he sustained some laceration to his face anteriorly. Within minutes, the patient was wide awake and the was about to call EMS and after the patient woke up the patient refused to come into the hospital. This morning, the patient came into the hospital for the event that occurred yesterday. No reported chest pain. No palpitations. No seizure activity noted. No focal neurological deficits. No change in his speech. CAT scan of the brain was done and showed chronic atrophy without any acute abnormalities seen. Chest x-ray was markedly abnormal and based on that a CAT scan of the chest was done that showed paraseptal emphysema addition to extensive consolidation of the right apical lobe in addition to areas of cavitation/fluid filled emphysematous pockets/ bullae and this was mainly affecting the upper lobe sparing the right middle lobe and the right lower lobe. Small right-sided pleural effusion was seen. No evidence of any significant medicinal lymphadenopathy. Unfortunately no previous x-rays aren't available for comparison. The patient denies having any close medical attention and he does not see doctors on a regular basis. He does admit however to become progressively more short of breath. His got a congested cough and his INR producing thick purulent sputum. Denies having any previous aspiration although he has had some difficulties with swallowing solid material. No history of TB exposure. No fever chills any admits to have lost some weight in the order of 10-15 pounds. No trauma to the chest. No exposure to animals or birds products. No travel history. His white cell count is mildly elevated at 15.0. Liver function is slightly abnormal. Troponins are negative. Aggressive electrodes are all within normal limits. EKG showed sinus tachycardia with bilateral a chair enlargement and left axis deviation and Q waves over the anterior leads suggestive of an old anterior wall myocardial infarction. Based on all this pulmonary consultation was requested. On today's evaluation of 07/26/2018, the patient is awake and alert and he is nothing by mouth awaiting his bronchoscopy. He is started on IV antibiotics. Is on Zosyn and Levaquin. Cardiac rhythm is remains sinus. Echocardiogram was done and the patient did not show any abnormalities and the patient has a preserved LV function had no further episodes of syncope was noted. The patient was taken to the endoscopy suite and the patient underwent a flexible bronchoscopy. Purulent respiratory secretions were identified in the right upper lobe endobronchial lavage of the right upper lobe was done. He tolerated the procedure well and the samples were sent for microbial analysis. No signs of any delirium tremens. Objective - Vital Signs Vital signs: Vital Signs Temp 99 F 07/26/18 12:00 Pulse 106 H 07/26/18 12:00 Resp 22 07/26/18 12:00 BP 117/60 07/26/18 12:00 Pulse Ox 97 07/26/18 12:00 Intake & Output 07/25/18 07/26/18 07/26/18 18:59 06:59 18:59 Intake Total 240 1000 Balance 240 1000 Weight 63.503 kg 63.8 kg 63.8 kg Intake: IV 100 Intake, IV Titration 900 Amount Sodium Chloride 0.9% 1, 900 000 ml @ 100 mls/hr IV . Q10H [facility] Rx#:[id number] Oral 240 Other: # Voids 2 2 2 - Exam Gen. appearance, comfortable likely distress. The patient has some superficial examination of the skin over the forehead and nose, no active bleeding Head exam was generally normal. There was no scleral icterus or corneal arcus. Mucous membranes were moist. Neck was supple and without jugular venous distension, thyromegaly, or carotid bruits. Carotids were easily palpable bilaterally. There was no adenopathy. Lungs sounds are diminished bilaterally along with some scattered expiratory wheezes. Few rales over the right upper lobe area anteriorly. Cardiac exam revealed the PMI to be normally situated and sized. The rhythm was regular and no extrasystoles were noted during several minutes of auscultation. The first and second heart sounds were normal and physiologic splitting of the second heart sound was noted. There were no murmurs, rubs, clicks, or gallops. Abdominal exam revealed normal bowel sounds. The abdomen was soft, non-tender, and without masses, organomegaly, or appreciable enlargement of the abdominal aorta. Examination of the skin revealed no evidence of significant rashes, suspicious appearing nevi or other concerning lesions. Examination of the extremities revealed easily palpable radial, femoral and pedal pulses. There was no cyanosis, clubbing or edema. Neurologically awake and alert and there is no focal neurological deficits. - Labs CBC & Chem 7: 07/26/18 06:46 07/26/18 06:46 Labs: Abnormal Lab Results - Last 24 Hours (Table) 07/25/18 07/25/18 07/26/18 Range/Units 16:03 22:14 06:46 WBC 14.8 H (3.8-10.6) k/uL RBC 3.77 L (4.30-5.90) m/uL Hgb 11.8 L (13.0-17.5) gm/dL Hct 36.1 L (39.0-53.0) % Plt Count 515 H (150-450) k/uL Neutrophils # 12.4 H (1.3-7.7) k/uL Sodium (137-145) mmol/L Chloride (98-107) mmol/L BUN (9-20) mg/dL AST (17-59) U/L ALT (21-72) U/L Total Creatine Kinase 30 L 21 L (55-170) U/L Total Protein (6.3-8.2) g/dL Albumin (3.5-5.0) g/dL 07/26/18 Range/Units 06:46 WBC (3.8-10.6) k/uL RBC (4.30-5.90) m/uL Hgb (13.0-17.5) gm/dL Hct (39.0-53.0) % Plt Count (150-450) k/uL Neutrophils # (1.3-7.7) k/uL Sodium 131 L (137-145) mmol/L Chloride 97 L (98-107) mmol/L BUN 8 L (9-20) mg/dL AST 94 H (17-59) U/L ALT 97 H (21-72) U/L Total Creatine Kinase (55-170) U/L Total Protein 5.1 L (6.3-8.2) g/dL Albumin 2.4 L (3.5-5.0) g/dL Microbiology - Last 24 Hours (Table) 07/25/18 17:15 Gram Stain - Preliminary Sputum Sputum Culture - Preliminary Assessment and Plan Plan: Assessment 1 extensive right upper lobe consolidation along with areas of either cavitation or fluid filled bullae/emphysematous blebs. This is most probably a manifestation of a pneumonia which is looking more subacute or chronic rather than being acute. The patient has been having some increased shortness of breath over the past several weeks. He drinks alcohol excessively is a smoker. As such I'm considering anaerobic infections/aspiration or gram-negative infections related to alcoholism. Tuberculosis felt to be less likely knowing that the patient's CAT scan does not reveal a typical features of TB and there is no evidence of any granulomatous changes changes or mediastinal node involvement, and furthermore the patient denies having any exposure to TB. Atypical mycobacterial infection, fungal infections are likely. 2 shortness of breath secondary to above 3 COPD with upper lobe predominance and areas of paraseptal emphysema 4 syncope on that investigation, in my judgment, the syncope is unlikely related to the lung findings and other causes need to be ruled out including possibility of alcoholic passed out or any other cardiogenic causes 5 smoker 6 alcoholism, suspected 7 anterior Q-wave leads, abnormal EKG, suspect previous GA involving the anterior wall/septal wall 8 hypertension 9 hyperlipidemia Plan The bronchoscopy was done without any complications. The samples were sent for microbial analysis and further antibiotic adjustments to be done based on the results of the BAL from the right upper lobe. The patient is hemodynamically stable. He tolerated the procedure well. Echocardiogram was within normal limits. No further episodes of syncope. Cardiology is also on the case.
[2018-07-26] MEDS ORDERED: AZITHROMYCIN 500 MG TAB PO SCH (13:38)
[2018-07-26 14:20] LABS: Appearance,BF Cloudy; Nucleated Cells, Body Fluid 150 /uL; RBC, Body Fluid 50 /uL
[2018-07-26 14:37] LABS: Mononuclear WBC,Body Fluid 6 %; Polynuclear WBC,Body Fluid 94 %; Total Cells Counted,Body Fluid 100
[2018-07-26] MEDS: LEVOFLOXACIN 750 MG TAB PO SCH (16:18)
[2018-07-26] MEDS: ATORVASTATIN 10 MG TAB PO SCH (20:43)
[2018-07-26] MEDS: MELATONIN 3 MG TABLET PO SCH (20:43)
[2018-07-27] MEDS: PIPERACILLIN-TAZOBACTAM 3.375 GM in DEXTROSE/WATER 1 50ML.BAG IVPB SCH ×3 (01:54→16:25)
[2018-07-27 06:46] LABS: Basophils % (A) 0 %; Eosinophils # (A) 0.3 k/uL (0-0.7); Eosinophils % (A) 2 %; HCT 34.1 % (39.0-53.0); HGB 11.2 gm/dL (13.0-17.5); Lymphocytes # (A) 1.2 k/uL (1.0-4.8); Lymphocytes % (A) 10 %; MCH 31.1 pg (25.0-35.0); MCHC 32.9 g/dL (31.0-37.0); MCV 94.6 fL (80.0-100.0); Mean Platelet Volume 6.9; Monocytes # (A) 0.6 k/uL (0-1.0); Monocytes % (A) 5 %; Neutrophils # (A) 9.9 k/uL (1.3-7.7); Neutrophils % (A) 81 %; Platelet Count 502 k/uL (150-450); RBC 3.61 m/uL (4.30-5.90); RDW 12.1 % (11.5-15.5); WBC 12.1 k/uL (3.8-10.6)
[2018-07-27 06:59] LABS: ALT 91 U/L (21-72); AST 73 U/L (17-59); Albumin 2.3 g/dL (3.5-5.0); Alkaline Phosphatase 103 U/L (38-126); Anion Gap 9 mmol/L; Blood Urea Nitrogen 6 mg/dL (9-20); Calcium 8.3 mg/dL (8.4-10.2); Carbon Dioxide 23 mmol/L (22-30); Chloride 101 mmol/L (98-107); Glucose 102 mg/dL (74-99); Potassium 4.5 mmol/L (3.5-5.1); Sodium 133 mmol/L (137-145); Total Bilirubin 0.5 mg/dL (0.2-1.3); Total Protein 4.7 g/dL (6.3-8.2)
[2018-07-27] MEDS: PANTOPRAZOLE 40 MG/10 ML VIAL IVP SCH (07:22)
[2018-07-27] MEDS: NICOTINE 21MG/24HR PATCH TRANSDERM SCH (07:22)
[2018-07-27] MEDS: MULTIVITAMINS, THERA 1 EACH TAB PO SCH (07:23)
[2018-07-27] MEDS: THIAMINE 100 MG TAB PO SCH ×2 (07:23→16:25)
[2018-07-27] MEDS: LISINOPRIL 10 MG TAB PO SCH (07:23)
[2018-07-27] MEDS: CYANOCOBALAMIN 500 MCG TAB PO SCH (07:24)
[2018-07-27] MEDS: SODIUM CHLORIDE 0.9% 1,000 ML IV SCH ×2 (07:24→16:25)
[2018-07-27] MEDS: IPRATROPIUM-ALBUTEROL 3 ML NEB INHALATION SCH ×3 (07:28→15:47)
[2018-07-27 07:39] VITALS: RESP 20
--- NOTE | 2018-07-27 11:10 | P.PN ---
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 The patient apparently was cutting the lawn and as he was doing that he was getting short of breath. He gave himself some rest and the same thing was drinking in beer. Subsequently he came back to do the job and he had a acute syncope with he passed out and he sustained some laceration to his face anteriorly. Within minutes, the patient was wide awake and the was about to call EMS and after the patient woke up the patient refused to come into the hospital. This morning, the patient came into the hospital for the event that occurred yesterday. No reported chest pain. No palpitations. No seizure activity noted. No focal neurological deficits. No change in his speech. CAT scan of the brain was done and showed chronic atrophy without any acute abnormalities seen. Chest x-ray was markedly abnormal and based on that a CAT scan of the chest was done that showed paraseptal emphysema addition to extensive consolidation of the right apical lobe in addition to areas of cavitation/fluid filled emphysematous pockets/ bullae and this was mainly affecting the upper lobe sparing the right middle lobe and the right lower lobe. Small right-sided pleural effusion was seen. No evidence of any significant medicinal lymphadenopathy. Unfortunately no previous x-rays aren't available for comparison. The patient denies having any close medical attention and he does not see doctors on a regular basis. He does admit however to become progressively more short of breath. His got a congested cough and his INR producing thick purulent sputum. Denies having any previous aspiration although he has had some difficulties with swallowing solid material. No history of TB exposure. No fever chills any admits to have lost some weight in the order of 10-15 pounds. No trauma to the chest. No exposure to animals or birds products. No travel history. His white cell count is mildly elevated at 15.0. Liver function is slightly abnormal. Troponins are negative. Aggressive electrodes are all within normal limits. EKG showed sinus tachycardia with bilateral a chair enlargement and left axis deviation and Q waves over the anterior leads suggestive of an old anterior wall myocardial infarction. Based on all this pulmonary consultation was requested. On today's evaluation of 07/26/2018, the patient is awake and alert and he is nothing by mouth awaiting his bronchoscopy. He is started on IV antibiotics. Is on Zosyn and Levaquin. Cardiac rhythm is remains sinus. Echocardiogram was done and the patient did not show any abnormalities and the patient has a preserved LV function had no further episodes of syncope was noted. The patient was taken to the endoscopy suite and the patient underwent a flexible bronchoscopy. Purulent respiratory secretions were identified in the right upper lobe endobronchial lavage of the right upper lobe was done. He tolerated the procedure well and the samples were sent for microbial analysis. No signs of any delirium tremens. On 07/27/2018, I'm seeing this patient for a follow-up. I performed a bronchoscopy yesterday. He looks extremely stable on Zosyn and Levaquin coverage. The patient wants to go home. No fever. No chills. The results are not out from the BAL. Would like an ID consultation regarding antibiotic choice on outpatient basis. This will be a long-term chronic treatment. Treatment can be also narrowed based on the results of the bronchioloalveolar lavage was collected yesterday. No leukocytosis. No other complaints otherwise for now. Objective - Vital Signs Vital signs: Vital Signs Temp 98.0 F 07/27/18 07:38 Pulse 111 H 07/27/18 11:03 Resp 20 07/27/18 07:39 BP 126/60 07/27/18 07:38 Pulse Ox 94 L 07/27/18 07:38 Intake & Output 07/26/18 07/27/18 07/27/18 18:59 06:59 18:59 Intake Total 1000 1490 Output Total 300 Balance 1000 1190 Weight 63.8 kg 64.6 kg Intake: IV 100 Intake, IV Titration 900 950 Amount Piperacillin-Tazobactam 3 50 .375 gm In Dextrose/Water 1 50ml.bag @ 12.5 mls/hr IVPB Q8HR [facility] Rx#: [id number] Sodium Chloride 0.9% 1, 900 000 ml @ 100 mls/hr IV . Q10H [facility] Rx#:[id number] Sodium Chloride 0.9% 1, 900 000 ml @ 75 mls/hr IV . [id number] [facility] Rx#:[id number] Oral 540 Output: Urine 300 Other: Voiding Method Toilet Toilet # Voids 2 2 1 - Exam Gen. appearance, comfortable likely distress. The patient has some superficial examination of the skin over the forehead and nose, no active bleeding Head exam was generally normal. There was no scleral icterus or corneal arcus. Mucous membranes were moist. Neck was supple and without jugular venous distension, thyromegaly, or carotid bruits. Carotids were easily palpable bilaterally. There was no adenopathy. Lungs sounds are diminished bilaterally along with some scattered expiratory wheezes. Few rales over the right upper lobe area anteriorly. Cardiac exam revealed the PMI to be normally situated and sized. The rhythm was regular and no extrasystoles were noted during several minutes of auscultation. The first and second heart sounds were normal and physiologic splitting of the second heart sound was noted. There were no murmurs, rubs, clicks, or gallops. Abdominal exam revealed normal bowel sounds. The abdomen was soft, non-tender, and without masses, organomegaly, or appreciable enlargement of the abdominal aorta. Examination of the skin revealed no evidence of significant rashes, suspicious appearing nevi or other concerning lesions. Examination of the extremities revealed easily palpable radial, femoral and pedal pulses. There was no cyanosis, clubbing or edema. Neurologically awake and alert and there is no focal neurological deficits. - Labs CBC & Chem 7: 07/27/18 06:07 07/27/18 06:07 Labs: Abnormal Lab Results - Last 24 Hours (Table) 07/27/18 07/27/18 Range/Units 06:07 06:07 WBC 12.1 H (3.8-10.6) k/uL RBC 3.61 L (4.30-5.90) m/uL Hgb 11.2 L (13.0-17.5) gm/dL Hct 34.1 L (39.0-53.0) % Plt Count 502 H (150-450) k/uL Neutrophils # 9.9 H (1.3-7.7) k/uL Sodium 133 L (137-145) mmol/L BUN 6 L (9-20) mg/dL Creatinine 0.60 L (0.66-1.25) mg/dL Glucose 102 H (74-99) mg/dL Calcium 8.3 L (8.4-10.2) mg/dL AST 73 H (17-59) U/L ALT 91 H (21-72) U/L Total Protein 4.7 L (6.3-8.2) g/dL Albumin 2.3 L (3.5-5.0) g/dL Microbiology - Last 24 Hours (Table) 07/26/18 13:26 Gram Stain - Preliminary Bronchial Washings - Right Bronchial Washings Culture - Preliminary 07/26/18 13:26 Acid Fast Bacilli Culture - Preliminary Bronchial Washings - Right 07/26/18 13:26 Fungal Culture - Preliminary Bronchial Washings - Right 07/25/18 13:54 Blood Culture - Preliminary Blood No Growth after 24 hours 07/25/18 17:15 Gram Stain - Preliminary Sputum Sputum Culture - Preliminary Assessment and Plan Plan: Assessment 1 extensive right upper lobe consolidation along with areas of either cavitation or fluid filled bullae/emphysematous blebs. This is most probably a manifestation of a pneumonia which is looking more subacute or chronic rather than being acute. The patient has been having some increased shortness of breath over the past several weeks. He drinks alcohol excessively is a smoker. As such I'm considering anaerobic infections/aspiration or gram-negative infections related to alcoholism. Tuberculosis felt to be less likely knowing that the patient's CAT scan does not reveal a typical features of TB and there is no evidence of any granulomatous changes changes or mediastinal node involvement, and furthermore the patient denies having any exposure to TB. Atypical mycobacterial infection, fungal infections are likely. On 07/27/2018, the bronchoscopy was done and the cultures still pending. Patient is stable on a combination of Zosyn and Levaquin. He was to get discharged home. Does not look to be septic. I do not have any culture results yet and this can be followed up later on outpatient basis. I would like to get an ID consultation to help us with the choice of antibiotics. 2 shortness of breath secondary to above 3 COPD with upper lobe predominance and areas of paraseptal emphysema 4 syncope on that investigation, in my judgment, the syncope is unlikely related to the lung findings and other causes need to be ruled out including possibility of alcoholic passed out or any other cardiogenic causes 5 smoker 6 alcoholism, suspected 7 anterior Q-wave leads, abnormal EKG, suspect previous [place] involving the anterior wall/septal wall 8 hypertension 9 hyperlipidemia Plan The bronchoscopy was done without any complications. The samples were sent for microbial analysis and further antibiotic adjustments will be needed. The patient was to go home. I like him to see ID to narrow down the antibiotic choices. This will be empiric as long as we don't have the final results from the BAL yet. Meanwhile, the patient was counseled for smoking cessation, alcohol drinking cessation. We will decide possible to send home either today or tomorrow based on the recommendations is down by ID.
--- NOTE | 2018-07-27 13:51 | P.PN ---
Subjective Patient is doing well. No dizziness lightheadedness no chest pain no shortness of breath ablating in the room Examination is normal rhythm is regular heart sounds are normal breath sounds are clear vitals are stable blood pressure is normal Telemetry does not show any bradycardia Suggest continue current medical treatment and upon discharge follow-up with Dr. Yong azevedo 2-3 weeks for further workup of syncope Being treated for possible pneumonia Abstinence from alcohol use Objective - Vital Signs Vital signs: Vital Signs Temp 97.8 F 07/27/18 11:09 Pulse 112 H 07/27/18 11:15 Resp 20 07/27/18 11:09 BP 135/65 07/27/18 11:09 Pulse Ox 96 07/27/18 11:09 Intake & Output 07/26/18 07/27/18 07/27/18 18:59 06:59 18:59 Intake Total 1000 1690 Output Total 300 Balance 1000 1390 Weight 63.8 kg 64.6 kg Intake: IV 100 Intake, IV Titration 900 950 Amount Piperacillin-Tazobactam 3 50 .375 gm In Dextrose/Water 1 50ml.bag @ 12.5 mls/hr IVPB Q8HR [facility] Rx#: [id number] Sodium Chloride 0.9% 1, 900 000 ml @ 100 mls/hr IV . Q10H [facility] Rx#:[id number] Sodium Chloride 0.9% 1, 900 000 ml @ 75 mls/hr IV . [id number] [facility] Rx#:[id number] Oral 740 Output: Urine 300 Other: Voiding Method Toilet Toilet # Voids 2 2 1 - Labs CBC & Chem 7: 07/27/18 06:07 07/27/18 06:07 Labs: Abnormal Lab Results - Last 24 Hours (Table) 07/27/18 07/27/18 Range/Units 06:07 06:07 WBC 12.1 H (3.8-10.6) k/uL RBC 3.61 L (4.30-5.90) m/uL Hgb 11.2 L (13.0-17.5) gm/dL Hct 34.1 L (39.0-53.0) % Plt Count 502 H (150-450) k/uL Neutrophils # 9.9 H (1.3-7.7) k/uL Sodium 133 L (137-145) mmol/L BUN 6 L (9-20) mg/dL Creatinine 0.60 L (0.66-1.25) mg/dL Glucose 102 H (74-99) mg/dL Calcium 8.3 L (8.4-10.2) mg/dL AST 73 H (17-59) U/L ALT 91 H (21-72) U/L Total Protein 4.7 L (6.3-8.2) g/dL Albumin 2.3 L (3.5-5.0) g/dL Microbiology - Last 24 Hours (Table) 07/26/18 13:26 Gram Stain - Preliminary Bronchial Washings - Right Bronchial Washings Culture - Preliminary 07/26/18 13:26 Acid Fast Bacilli Culture - Preliminary Bronchial Washings - Right 07/26/18 13:26 Fungal Culture - Preliminary Bronchial Washings - Right 07/25/18 13:54 Blood Culture - Preliminary Blood No Growth after 24 hours
[2018-07-27 14:48] VITALS: BP 135/64; TEMP 97
--- NOTE | 2018-07-27 15:18 | P.CONS ---
History of Present Illness - Reason for Consult Consult date: 07/27/18 - Chief Complaint syncope - History of Present Illness 63 year old male with long standing history of tobacco use since his early teenage years. Generally does not see much medical care however it is related that he was out cutting the grass. He then had a syncopal event. The following day because he was not feeling well his convinced him to come to hospital. Emergency center there was evidence of significant pneumonia associated with fever and leukocytosis and constantly patient was admitted. A dense pneumonia was seen on his computed tomography scan and he was taking to the bronchoscopy suite and a bronchoscopy and BAL was performed yesterday. The patient is now feeling considerably better and apparently is very insistent about his discharge to home. Has been infectious diseases consult was requested regarding choices of antibiotic therapy. The patient does feel considerably better. Is not requiring oxygen therapy but is receiving nebulized treatments which seems to be helping. He is denying further fevers chills or rigors or sweats. His breathing is evidence it's been a while. As noted he is a long-term smoker in the nicotine patch seems to be helping. He has not had prior syncopal events. He had no warning before the event. He is not having any chest pain or pressure. He's had no palpitations. He's had no further sensations of presyncope since his admission. Review of Systems HEENT:Denies headache or acute visual change. Denies sinus or mouth discomforts. Denies neck stiffness or pain. Denies significant oral cavity pain. Denies difficulty on swallowing. Lungs: Chronic cough, denies change of shortness of breath denies discomforts in his chest denies hemoptysis Cardiovascular: No change in his baseline shortness of breath, denies chest pains or pressures. He had a syncopal event as noted per the HPI but denies orthopnea or dyspnea on exertion that are different than baseline Gastrointestinal:Denies nausea, vomiting, diarrhea, constipation, hematemesis, melena, hematochezia. No no significant change of bowel habit noticed. Musculoskeletal: denies significant myalgias or arthralgias. No new joint swelling. Denies new back pain. Skin: Denies new rash or lesions. No new ulcers or wounds are related.. Neuro: Denies headache or visual change. Denies any new onset weakness or difficulty with ambulation. Denies falls or seizures. Psychiatric:Denies anxiety or depression. Endocrine: Denies significant fatigue, denies significant weight loss or weight gain. Past Medical History Past Medical History: COPD, Hyperlipidemia, Hypertension, Osteoarthritis (OA) Additional Past Medical History / Comment(s): Arthritis bilateral hands, elbows , shoulders and L foot. History of Any Multi-Drug Resistant Organisms: None Reported Past Surgical History: Appendectomy, Hernia Repair, Tonsillectomy Additional Past Surgical History / Comment(s): 5 hernia repairs involving bilateral groins Past Anesthesia/Blood Transfusion Reactions: No Reported Reaction Additional Past Anesthesia/Blood Transfusion Reaction / Comm: Pt has never received blood. Additional Psychological History / Comment(s): and lives in the family home with his . Adult children will help attend. 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 Lifelong smoker since his early teenage years, also history of alcohol use over the years. No history of experience. No international travel. Dogs in the home Smoking Status: Current every day smoker - Past Family History Father Family Medical History: Musculoskeletal Disorder, Neurologic Disorder Additional Family Medical History / Comment(s): Father is . He had MS. Mother Family Medical History: Myocardial Infarction (SD) Additional Family Medical History / Comment(s): Mother of a SD at the age of 78yrs. Medications and Allergies Home Medications and Allergies Comment(s): Current Medications Acetaminophen (Tylenol Tab) 500 mg PO Q6HR PRN PRN Reason: Fever and/ or Pain Last Admin: 07/26/18 20:43 Dose: 500 mg Hydrocodone Bitart/Acetaminophen (Benton 5-325) 1 each PO Q6HR PRN PRN Reason: Pain Albuterol/Ipratropium (Duoneb 0.5 Mg-3 Mg/3 Ml Soln) 3 ml INHALATION RT-Q4H PRN PRN Reason: shortness of breath Albuterol/Ipratropium (Duoneb 0.5 Mg-3 Mg/3 Ml Soln) 3 ml INHALATION RT-QID [facility] Last Admin: 07/27/18 11:03 Dose: 3 ml Alprazolam (Xanax) 0.25 mg PO TID PRN PRN Reason: Anxiety Atorvastatin Calcium (Lipitor) 10 mg PO HS [facility] Last Admin: 07/26/18 20:43 Dose: 10 mg Cyanocobalamin (Vitamin B-12) 1,000 mcg PO DAILY [facility] Last Admin: 07/27/18 07:24 Dose: 1,000 mcg Ergocalciferol (Vitamin D2) 50,000 unit PO FR [facility] Sodium Chloride (Saline 0.9%) 1,000 mls @ 75 mls/hr IV .[id number] [facility] Last Admin: 07/27/18 07:24 Dose: 75 mls/hr Piperacillin/Tazobactam/ (Dextrose 3.375 gm/ IV Solution) 50 mls @ 12.5 mls/hr IVPB Q8HR [facility] Last Admin: 07/27/18 07:21 Dose: 12.5 mls/hr Levofloxacin (Levaquin) 750 mg PO DAILY@1600 [facility] Last Admin: 07/26/18 16:18 Dose: 750 mg Lisinopril (Zestril) 10 mg PO DAILY [facility] Last Admin: 07/27/18 07:23 Dose: 10 mg Lorazepam (Ativan) 1 mg IV Q2HR PRN PRN Reason: CIWA 8 or 9 Lorazepam (Ativan) 1 mg IV Q1HR PRN PRN Reason: CIWA 10 to 15 Lorazepam (Ativan) 2 mg IV Q10M PRN PRN Reason: CIWA 16 or higher Stop: 07/27/18 17:38 Melatonin (Melatonin) 6 mg PO HS [facility] Last Admin: 07/26/18 20:43 Dose: 6 mg Miscellaneous Information (Pneumonia Protocol Utilized) 1 each PO ONCE PRN PRN Reason: Per Protocol Multivitamins (Theragran) 1 each PO DAILY@1200 [facility] Last Admin: 07/27/18 07:23 Dose: 1 each Naloxone HCl (Narcan) 0.2 mg IV Q2M PRN PRN Reason: Opioid Reversal Nicotine (Habitrol 21mg/24hr Patch) 1 patch TRANSDERM DAILY [facility] Last Admin: 07/27/18 07:22 Dose: 1 patch Ondansetron HCl (Zofran) 4 mg IVP Q6HR PRN PRN Reason: Nausea And Vomiting Pantoprazole Sodium (Protonix) 40 mg IVP DAILY [facility] Last Admin: 07/27/18 07:22 Dose: 40 mg Temazepam (Restoril) 15 mg PO HS PRN PRN Reason: Insomnia Thiamine HCl (Vitamin B-1) 100 mg PO BID@1200,1700 [facility] Last Admin: 07/27/18 07:23 Dose: 100 mg Tramadol HCl (Ultram) 50 mg PO Q6H PRN PRN Reason: Mild Pain Home Medications Medication Instructions Recorded Confirmed Type Aspirin EC [Ecotrin Low Dose] 81 mg PO DAILY 07/25/18 07/25/18 History Atorvastatin [Lipitor] 10 mg PO HS 07/25/18 07/25/18 History Cyanocobalamin (Vitamin B-12) 1,000 mcg PO DAILY 07/25/18 07/25/18 History [Vitamin B-12] Ergocalciferol (Vitamin D2) 50,000 unit PO FR 07/25/18 07/25/18 History [Vitamin D2] Lisinopril [Zestril] 10 mg PO DAILY 07/25/18 07/25/18 History Multivit-Min/FA/Lycopen/Lutein 1 tab PO DAILY 07/25/18 07/25/18 History [Centrum Silver Tablet] Langley-3 Fatty Acids/Fish Oil [Fish 1 cap PO DAILY 07/25/18 07/25/18 History Oil 1,000 mg Softgel] Albuterol Nebulized [Ventolin 2.5 mg INHALATION QID PRN #120 nebu 07/27/18 Rx Nebulized] Amoxic-Pot Clav 875-125Mg 1 tab PO Q12HR #14 tablet 07/27/18 Rx [Augmentin 875-125] Levofloxacin [Levaquin] 500 mg PO DAILY #7 tab 07/27/18 Rx Nicotine 21Mg/24Hr Patch [Habitrol] 1 each TRANSDERM DAILY #30 patch 07/27/18 Rx Allergies Allergy/AdvReac Type Severity Reaction Status Date / Time No Known Allergies Allergy Verified 07/25/18 10:29 Physical Exam Vitals: Vital Signs Temp Pulse Pulse Resp BP Pulse Ox 07/27/18 14:48 97.0 F L 111 H 20 135/64 97 07/27/18 14:42 101 H 20 07/27/18 11:15 112 H 07/27/18 11:09 97.8 F 101 H 20 135/65 96 07/27/18 11:07 106 H 20 07/27/18 11:03 111 H 07/27/18 07:39 99 106 H 20 07/27/18 07:38 98.0 F 106 H 20 126/60 94 L 07/27/18 07:29 96 07/27/18 04:00 100.0 F H 97 18 116/61 94 L 07/27/18 00:00 99.2 F 93 18 108/59 96 07/26/18 20:00 100.9 F H 119 H 18 115/57 93 L 07/26/18 19:36 102 H 07/26/18 19:24 105 H 18 98 07/26/18 16:00 98.9 F 100 18 144/71 95 07/26/18 15:26 104 H 07/26/18 15:15 104 H 16 Intake and Output 07/27/18 07/27/18 07/27/18 06:59 14:59 22:59 Intake Total 1810 Output Total 700 Balance 1110 Intake: Intake, IV Titration 950 Amount Piperacillin-Tazobactam 3 50 .375 gm In Dextrose/Water 1 50ml.bag @ 12.5 mls/hr IVPB Q8HR [facility] Rx#: [id number] Sodium Chloride 0.9% 1, 900 000 ml @ 75 mls/hr IV . [id number] DURGA Rx#:[id number] Oral 860 Output: Urine 700 Other: Voiding Method Toilet Toilet # Voids 2 1 Weight 64.6 kg 63-year-old male who was of a small build small stature is in no distress. HEENT: Anicteric conjunctiva are pink and moist nasal mucosa grossly intact without significant lesions, there is no thrush. Dentition is poor for age Neck: The neck is supple without significant lymphadenopathy or thyromegaly. Lungs: There is symmetrical air entry, expiratory wheezes are scattered the lung teixeira. There is no significant dullness on exam however localized egophony is noted the right posterior mid section. Heart: Regular rate and rhythm with an audible S1-S2, no S3 no S4. There is no significant murmur click or rub, PMI was nondisplaced. Abdomen: Positive bowel sounds soft and nontender without palpable masses or organomegaly. There was no guarding or rebound. Extremities: The upper extremities have excellent pulses they are symmetric, no significant petechiae or telangiectasia. No splinter hemorrhages were noted. The lower extremities are free from significant edema. The peripheral pulses were 2+ and symmetric. Neuro: Awake alert oriented to person place and time. There are no acute new gross focal sensory motor deficits. Results CBC & Chem 7: 07/27/18 06:07 07/27/18 06:07 Labs: Abnormal Lab Results - Last 24 Hours (Table) 07/27/18 07/27/18 Range/Units 06:07 06:07 WBC 12.1 H (3.8-10.6) k/uL RBC 3.61 L (4.30-5.90) m/uL Hgb 11.2 L (13.0-17.5) gm/dL Hct 34.1 L (39.0-53.0) % Plt Count 502 H (150-450) k/uL Neutrophils # 9.9 H (1.3-7.7) k/uL Sodium 133 L (137-145) mmol/L BUN 6 L (9-20) mg/dL Creatinine 0.60 L (0.66-1.25) mg/dL Glucose 102 H (74-99) mg/dL Calcium 8.3 L (8.4-10.2) mg/dL AST 73 H (17-59) U/L ALT 91 H (21-72) U/L Total Protein 4.7 L (6.3-8.2) g/dL Albumin 2.3 L (3.5-5.0) g/dL Microbiology - Last 24 Hours (Table) 07/25/18 17:15 Gram Stain - Preliminary Sputum Sputum Culture - Preliminary Gram Neg Bacilli 07/26/18 13:26 Gram Stain - Preliminary Bronchial Washings - Right Bronchial Washings Culture - Preliminary 07/26/18 13:26 Acid Fast Bacilli Culture - Preliminary Bronchial Washings - Right 07/26/18 13:26 Fungal Culture - Preliminary Bronchial Washings - Right 07/25/18 13:54 Blood Culture - Preliminary Blood No Growth after 24 hours Laboratory Results WBC 12.1 k/uL (3.8-10.6) H 07/27/18 06:07 RBC 3.61 m/uL (4.30-5.90) L 07/27/18 06:07 Hgb 11.2 gm/dL (13.0-17.5) L 07/27/18 06:07 Hct 34.1 % (39.0-53.0) L 07/27/18 06:07 MCV 94.6 fL (80.0-100.0) 07/27/18 06:07 MCH 31.1 pg (25.0-35.0) 07/27/18 06:07 MCHC 32.9 g/dL (31.0-37.0) 07/27/18 06:07 RDW 12.1 % (11.5-15.5) 07/27/18 06:07 Plt Count 502 k/uL (150-450) H 07/27/18 06:07 Neutrophils % 81 % 07/27/18 06:07 Lymphocytes % 10 % 07/27/18 06:07 Monocytes % 5 % 07/27/18 06:07 Eosinophils % 2 % 07/27/18 06:07 Basophils % 0 % 07/27/18 06:07 Neutrophils # 9.9 k/uL (1.3-7.7) H 07/27/18 06:07 Lymphocytes # 1.2 k/uL (1.0-4.8) 07/27/18 06:07 Monocytes # 0.6 k/uL (0-1.0) 07/27/18 06:07 Eosinophils # 0.3 k/uL (0-0.7) 07/27/18 06:07 Basophils # 0.0 k/uL (0-0.2) 07/27/18 06:07 PT 10.3 sec (9.0-12.0) 07/25/18 10:20 INR 1.1 (<1.2) 07/25/18 10:20 APTT 24.9 sec (22.0-30.0) 07/25/18 10:20 D-Dimer 3.26 mg/L FEU (<0.60) H 07/25/18 10:20 Sodium 133 mmol/L (137-145) L 07/27/18 06:07 Potassium 4.5 mmol/L (3.5-5.1) 07/27/18 06:07 Chloride 101 mmol/L (98-107) 07/27/18 06:07 Carbon Dioxide 23 mmol/L (22-30) 07/27/18 06:07 Anion Gap 9 mmol/L 07/27/18 06:07 BUN 6 mg/dL (9-20) L 07/27/18 06:07 Creatinine 0.60 mg/dL (0.66-1.25) L 07/27/18 06:07 Est GFR (CKD-EPI)AfAm >90 (>60 ml/min/1.73 sqM) 07/27/18 06:07 Est GFR (CKD-EPI)NonAf >90 (>60 ml/min/1.73 sqM) 07/27/18 06:07 Glucose 102 mg/dL (74-99) H 07/27/18 06:07 Plasma Lactic Acid Nestor 0.7 mmol/L (0.7-2.0) 07/25/18 13:54 Calcium 8.3 mg/dL (8.4-10.2) L 07/27/18 06:07 Magnesium 2.0 mg/dL (1.6-2.3) 07/25/18 10:20 Total Bilirubin 0.5 mg/dL (0.2-1.3) 07/27/18 06:07 AST 73 U/L (17-59) H 07/27/18 06:07 ALT 91 U/L (21-72) H 07/27/18 06:07 Alkaline Phosphatase 103 U/L (38-126) 07/27/18 06:07 Total Creatine Kinase 21 U/L (55-170) L 07/25/18 22:14 CK-MB (CK-2) 0.5 ng/mL (0.0-2.4) 07/25/18 22:14 CK-MB (CK-2) Rel Index 2.4 07/25/18 22:14 Troponin I <0.012 ng/mL (0.000-0.034) 07/25/18 22:14 Total Protein 4.7 g/dL (6.3-8.2) L 07/27/18 06:07 Albumin 2.3 g/dL (3.5-5.0) L 07/27/18 06:07 Urine Color Yellow 07/25/18 12:16 Urine Appearance Clear (Clear) 07/25/18 12:16 Urine pH 6.0 (5.0-8.0) 07/25/18 12:16 Ur Specific Aspen 1.035 (1.001-1.035) 07/25/18 12:16 Urine Protein Trace (Negative) H 07/25/18 12:16 Urine Glucose (UA) Negative (Negative) 07/25/18 12:16 Urine Ketones 2+ (Negative) H 07/25/18 12:16 Urine Blood Negative (Negative) 07/25/18 12:16 Urine Nitrite Negative (Negative) 07/25/18 12:16 Urine Bilirubin Negative (Negative) 07/25/18 12:16 Urine Urobilinogen 3.0 mg/dL (<2.0) 07/25/18 12:16 Ur Leukocyte Esterase Negative (Negative) 07/25/18 12:16 Fluid Source Bronchial Wash 07/26/18 13:26 Fluid Appearance Cloudy 07/26/18 13:26 Fluid RBC 50 /uL 07/26/18 13:26 Fluid Nucleated Cells 150 /uL 07/26/18 13:26 Fluid Polynuclear WBCs 94 % 07/26/18 13:26 Fluid Mononuclear WBCs 6 % 07/26/18 13:26 Microbiology 07/25/18 17:15 Sputum Gram Stain - Preliminary 07/25/18 17:15 Sputum Sputum Culture - Preliminary Gram Neg Bacilli 07/26/18 13:26 Bronchial Washings - Right Gram Stain - Preliminary 07/26/18 13:26 Bronchial Washings - Right Bronchial Washings Culture - Preliminary 07/26/18 13:26 Bronchial Washings - Right Acid Fast Bacilli Culture - Preliminary 07/26/18 13:26 Bronchial Washings - Right Fungal Culture - Preliminary 07/25/18 13:54 Blood Blood Culture - Preliminary No Growth after 24 hours Abdominal x-ray: image reviewed (Dense infiltrate right middle lobe) CT scan - chest: image reviewed (Dense infiltrate right middle lobe) Assessment and Plan (1) Syncope Current Visit: Yes Status: Acute Code(s): R55 - SYNCOPE AND COLLAPSE SNOMED Code(s): 122760432 (2) Aspiration pneumonia of right middle lobe Narrative/Plan: 63-year-old male presents to Hospital after a syncopal event. Workup has been ongoing without evidence of an acute cardiac event. However patient was acutely ill at presentation with a fever as well as significant leukocytosis. Computed tomography scan and x-rays were performed of the chest reveal evidence of significant right middle lobe infiltrate. Because of this he was seen by pulmonary critical care bronchoscopy was performed. The patient clinically has improved since the bronchoscopy and is quite anxious to go home. The patient is having no further fever no further extensive leukocytosis and does seem to be doing relatively well. Constantly antimicrobial therapy is sent to his pharmacy levofloxacin and Augmentin to complete 7 days of therapy. Follow-up with pulmonary critical care in the outpatient setting to ensure that he is improving and have primary function tests. Upon the request of the coal dumping equipment operator have arranged for outpatient albuterol updraft treatments. Several things have been discussed with the patient's #1 and importantly he has his need for smoking cessation and nicotine patches are sent to his pharmacy. Secondly the patient has an atypical presentation and pneumonia seems to be more of a chronic condition and constantly tuberculosis is not ruled out although it still very unlikely, atypical tuberculosis needs to be considered and bronchoscopy will help further define this issue. Lastly the location of the pneumonia and his history of some alcohol use would make concern to recurrent aspiration pneumonia of some concern. Antimicrobial therapy will be directed toward this concern, but cultures are still pending. We may need to alter antibiotic therapy was cultures become finally available. Follow up with coal dumping equipment operator in the outpatient clinic will further help define these issues. Current Visit: Yes Status: Acute Code(s): J69.0 - PNEUMONITIS DUE TO INHALATION OF FOOD AND VOMIT SNOMED Code(s): 694927728
[2018-07-27 16:00] VITALS: PULSE 103
[2018-07-27] MEDS: LEVOFLOXACIN 750 MG TAB PO SCH (16:25)
--- NOTE | 2018-07-27 18:40 | P.PN ---
Subjective Progress Note Date: 07/26/18 Principal diagnosis: Right upper lobe pneumonia Mr. Hernandez is a 63-year-old male with a past medical history of COPD, alcohol abuse, neck good dependence admitted to the hospital with a chief complaint of syncope. Patient was short of breath when he was cutting his lawn. Later during the day he had acute syncopal episode and passed out and sustained laceration to his face. Patient woke up immediately and his called the EMS and patient refuses to go to the hospital. The next day morning patient came to the hospital. Patient had a chest x-ray and a CAT scan of the chest showing extensive consolidation of the right apical lobe. Today the patient has been kept nothing by mouth for a bronchoscopy . He has been started on antibiotics Zosyn and Levaquin. Patient complains of ongoing difficulty in breathing with slight per sputum production. He denies having any chest pain or palpitations. No abdominal pain nausea vomiting or diarrhea. No dysuria or hematuria. Objective - Vital Signs Vital signs: Vital Signs Temp 98.9 F 07/26/18 16:00 Pulse 102 H 07/26/18 19:36 Resp 18 07/26/18 19:24 BP 144/71 07/26/18 16:00 Pulse Ox 98 07/26/18 19:24 Intake & Output 07/26/18 07/26/18 07/27/18 06:59 18:59 06:59 Intake Total 1000 Balance 1000 Weight 63.8 kg 63.8 kg Intake: IV 100 Intake, IV Titration 900 Amount Sodium Chloride 0.9% 1, 900 000 ml @ 100 mls/hr IV . Q10H [facility] Rx#:[id number] Other: # Voids 2 2 - Exam GEN. APPEARANCE: alert, in no apparent distress HEAD EXAM: atraumatic, normocephalic, normal inspection EYE EXAM: No pallor no icterus ENT EXAM: normal exam, mucous membranes moist NECK EXAM: No JVD no thyromegaly RESPIRATORY EXAM: Diminished breath sounds bilaterally with scattered expiratory wheezes. Rhonchi in the right upper lobe CARDIOVASCULAR EXAM: S1 and S2 heard GI/ABDOMINAL EXAM: soft, normal bowel sounds. Absent: distended, tenderness, guarding, rebound, rigid EXTREMITIES EXAM: No pedal edema NEUROLOGICAL EXAM: alert, oriented X3, no focal deficits - Labs CBC & Chem 7: 07/27/18 06:07 07/27/18 06:07 Labs: Abnormal Lab Results - Last 24 Hours (Table) 07/25/18 07/26/18 07/26/18 Range/Units 22:14 06:46 06:46 WBC 14.8 H (3.8-10.6) k/uL RBC 3.77 L (4.30-5.90) m/uL Hgb 11.8 L (13.0-17.5) gm/dL Hct 36.1 L (39.0-53.0) % Plt Count 515 H (150-450) k/uL Neutrophils # 12.4 H (1.3-7.7) k/uL Sodium 131 L (137-145) mmol/L Chloride 97 L (98-107) mmol/L BUN 8 L (9-20) mg/dL AST 94 H (17-59) U/L ALT 97 H (21-72) U/L Total Creatine Kinase 21 L (55-170) U/L Total Protein 5.1 L (6.3-8.2) g/dL Albumin 2.4 L (3.5-5.0) g/dL Microbiology - Last 24 Hours (Table) 07/25/18 13:54 Blood Culture - Preliminary Blood No Growth after 24 hours 07/25/18 17:15 Gram Stain - Preliminary Sputum Sputum Culture - Preliminary Assessment and Plan Assessment: ASSESSMENT Right upper lobe pneumonia Acute exacerbation of COPD Syncope Hypertension Hyperlipidemia Nicotine dependence Degenerative joint disease Leukocytosis Increased LFTs Plan: Continue the patient on empiric antiemetics in the form of Zosyn and Levaquin. Patient is being taken for a bronchoscopy today by Dr. Fournier. Continue with the rest of his medication management. Further recommendations to follow depending on the progress of the patient.
--- NOTE | 2018-07-27 18:44 | P.DS ---
Providers Date of admission: 07/25/18 13:36 Expected date of discharge: 07/27/18 Attending physician: Jennifer Ghosh Consults: 07/25/18 13:37 Consult Physician Urgent Consulting Provider: Debbie Fournier Consult Reason/Comments: rul irregularity Do you want consulting provider notified?: Yes Consult Physician Urgent Consulting Provider: Paul Saldaña Consult Reason/Comments: syncope Do you want consulting provider notified?: Yes 07/27/18 11:10 Consult Physician Routine Consulting Provider: Kevin Crystal Consult Reason/Comments: pneumonia Do you want consulting provider notified?: Yes Primary care physician: Stated None Hospital Course: Mr. Hernandez is a 63-year-old male with a past medical history of COPD, alcohol abuse, neck good dependence admitted to the hospital with a chief complaint of syncope. Patient was short of breath when he was cutting his lawn. Later during the day he had acute syncopal episode and passed out and sustained laceration to his face. Patient woke up immediately and his called the EMS and patient refuses to go to the hospital. The next day morning patient came to the hospital. Patient had a chest x-ray and a CAT scan of the chest showing extensive consolidation of the right apical lobe. He has been started on antibiotics Zosyn and Levaquin. Patient had a bronchoscopy done on 07/26/2018. His symptoms improved significantly after the bronchoscopy. ID Dr. Crystal has been consulted who recommended- Augmentin and Levaquin on which the patient is being discharged home in a stable condition after getting clearance from pulmonary. Patient's vitals and physical exam within normal limits at the time of discharge. Discharge diagnosis Right upper lobe pneumonia Acute exacerbation of COPD Syncope Hypertension Hyperlipidemia Nicotine dependence Degenerative joint disease Patient is advised to complete his antibiotic course. To follow-up with his probation counselor in 3-5 days for the results of bronchoalveolar lavage. Plan - Discharge Summary Discharge Rx Participant: No New Discharge Prescriptions: New Amoxic-Pot Clav 875-125Mg [Augmentin 875-125] 1 tab PO Q12HR #14 tablet Levofloxacin [Levaquin] 500 mg PO DAILY #7 tab Albuterol Nebulized [Ventolin Nebulized] 2.5 mg INHALATION QID PRN #120 nebu PRN Reason: Wheezing Nicotine 21Mg/24Hr Patch [Habitrol] 1 each TRANSDERM DAILY #30 patch Nicotine 21Mg/24Hr Patch [Habitrol] 1 patch TRANSDERM DAILY patch Thiamine [Vitamin B-1] 100 mg PO BID@1200,1700 #30 tab Continue Lisinopril [Zestril] 10 mg PO DAILY Atorvastatin [Lipitor] 10 mg PO HS Aspirin EC [Ecotrin Low Dose] 81 mg PO DAILY Rosine-3 Fatty Acids/Fish Oil [Fish Oil 1,000 mg Softgel] 1 cap PO DAILY Multivit-Min/FA/Lycopen/Lutein [Centrum Silver Tablet] 1 tab PO DAILY Ergocalciferol (Vitamin D2) [Vitamin D2] 50,000 unit PO FR Cyanocobalamin (Vitamin B-12) [Vitamin B-12] 1,000 mcg PO DAILY Discharge Medication List Aspirin EC [Ecotrin Low Dose] 81 mg PO DAILY 07/25/18 [History] Atorvastatin [Lipitor] 10 mg PO HS 07/25/18 [History] Cyanocobalamin (Vitamin B-12) [Vitamin B-12] 1,000 mcg PO DAILY 07/25/18 [ History] Ergocalciferol (Vitamin D2) [Vitamin D2] 50,000 unit PO FR 07/25/18 [History] Lisinopril [Zestril] 10 mg PO DAILY 07/25/18 [History] Multivit-Min/FA/Lycopen/Lutein [Centrum Silver Tablet] 1 tab PO DAILY 07/25/18 [ History] Rosine-3 Fatty Acids/Fish Oil [Fish Oil 1,000 mg Softgel] 1 cap PO DAILY [History] Albuterol Nebulized [Ventolin Nebulized] 2.5 mg INHALATION QID PRN #120 nebu [Rx] Amoxic-Pot Clav 875-125Mg [Augmentin 875-125] 1 tab PO Q12HR #14 tablet [Rx] Levofloxacin [Levaquin] 500 mg PO DAILY #7 tab 07/27/18 [Rx] Nicotine 21Mg/24Hr Patch [Habitrol] 1 each TRANSDERM DAILY #30 patch 07/27/18 [ Rx] Nicotine 21Mg/24Hr Patch [Habitrol] 1 patch TRANSDERM DAILY patch 07/27/18 [Rx] Thiamine [Vitamin B-1] 100 mg PO BID@1200,1700 #30 tab 07/27/18 [Rx] Follow up Appointment(s)/Referral(s): Williams Infante MD [STAFF PHYSICIAN] - 2 Weeks (Offices are closed at this time. Please call SATURDAY to make a follow up appointment.) None,Stated [Primary Care Provider] - 1-2 days Debbie Fournier MD [STAFF PHYSICIAN] - 1 Week (Offices are closed at this time. Please call SATURDAY to make a follow up appointment.) Ambulatory/Diagnostic Orders: Nebulizer - to be accompanied by form#[id number](adult) or #[id number](peds) [DME.[email or web address]] Location: None Selected Patient Instructions/Handouts: Pneumonia (DC), Flexible Bronchoscopy (DC) Activity/Diet/Wound Care/Special Instructions: Contact [facility] in order to arrange Primary Care Physician: #[phone] Nebulizer ordered through [facility] who will deliver to the home: # IT IS UNKNOWN HOW LONG PATIENT WILL NEED TIME OFF TO RECOVER PATIENT IS ADVISED TO TAKE TIME OFF UNTIL HIS FOLLOW UP APPOINTMENT IN ONE WEEK WITH THE PHOTOGRAPH MOUNTER. IT WILL THEN BE DETERMINED HOW PATIENT IS DOING AND WHEN HE CAN RETURN TO WORK. Discharge/Stand Alone Forms: Work/School Release, Work/Release Restrictions Form Discharge Disposition: HOME SELF-CARE
[2018-08-01] MEDS ORDERED: ERGOCALCIFEROL 50,000 UNIT CAP PO SCH (09:00)
== END 2018-07-27 16:30 | disposition home or self-care (01) | DRG 167 ==
LOC: EC 09:53 → 6SEL 13:36
PROVIDERS: ADMIT Hospitalist; ATTEND Hospitalist
PROC: 3E0234Z Introduction of Serum, Toxoid and Vaccine into Muscle, Percutaneous Approach (ICD-10-PCS; 2018-07-25)
PROC: 0BJ08ZZ Inspection of Tracheobronchial Tree, Via Natural or Artificial Opening Endoscopic (ICD-10-PCS; 2018-07-26)
PROC: 0B9C8ZX Drainage of Right Upper Lung Lobe, Via Natural or Artificial Opening Endoscopic, Diagnostic (ICD-10-PCS; principal; 2018-07-26 12:00)
DX: J69.0 Pneumonitis due to inhalation of food and vomit (principal); E87.1 Hypo-osmolality and hyponatremia; J44.1 Chronic obstructive pulmonary disease with (acute) exacerbation; J44.0 Chronic obstructive pulmonary disease with (acute) lower respiratory infection; J90 Pleural effusion, not elsewhere classified; E78.5 Hyperlipidemia, unspecified; F10.20 Alcohol dependence, uncomplicated; F17.210 Nicotine dependence, cigarettes, uncomplicated; I10 Essential (primary) hypertension; I25.2 Old myocardial infarction; M19.041 Primary osteoarthritis, right hand; M19.042 Primary osteoarthritis, left hand; Z82.0 Family history of epilepsy and other diseases of the nervous system; Z82.49 Family history of ischemic heart disease and other diseases of the circulatory system; M19.022 Primary osteoarthritis, left elbow; M19.021 Primary osteoarthritis, right elbow; M19.012 Primary osteoarthritis, left shoulder; M19.011 Primary osteoarthritis, right shoulder; M19.072 Primary osteoarthritis, left ankle and foot; R55 Syncope and collapse; Z71.6 Tobacco abuse counseling; Z79.82 Long term (current) use of aspirin; Z79.899 Other long term (current) drug therapy; Z23 Encounter for immunization
CPT/HCPCS: 31624; 36415; 70450; 71046; 71275; 80053; 81003; 82550; 82553; 83605; 83735; 84484; 85025; 85379; 85610; 85730; 87040; 87070; 87075; 87077; 87102; 87116; 87186; 87205; 87206; 87252; 87496; 87498; 87502; 87529; 87634; 87798; 88108; 88305; 89050; 90471; 90715; 93005; 93306; 94640; 96360; 96361; 99285

== ENCOUNTER → 2018-08-05 | Outpatient (CLI) | payer BC ==
--- NOTE | 2018-08-05 11:45 | XR ---
EXAMINATION TYPE: XR chest 2V DATE OF EXAM: 08/05/2018 COMPARISON: 07/26/2018 TECHNIQUE: PA and lateral views submitted. HISTORY: Abnormal x-ray FINDINGS: Lung volumes are prominent. There is bullous change in the right upper lobe. There is opacification o f part of the right upper lobe and there is an air-fluid level in the upper chest on the right. The l eft lung is clear. The heart is not enlarged. No definite pleural fluid is seen. Probable nipple shad ow overlying the left lower lobe. IMPRESSION: 1. Mild improvement in the consolidation surrounding the cavitating lesion in the right upper lobe. T his may represent improving pneumonia. Correlate clinically.
== END | disposition home or self-care (01) ==
LOC: RADXRMAIN 11:17
PROVIDERS: ATTEND Internal Medicine Critical Care Medicine
DX: R91.1 Solitary pulmonary nodule (principal)
CPT/HCPCS: 71046